=== PATIENT | female | born 1990 | race Caucasian/White ===

== ENCOUNTER 2019-06-29 11:49 | Emergency (ER) | payer MEDICAID, SELFPAY ==
[2019-06-29] VITALS (8 sets, daily range): BP systolic 131–164; BP diastolic 78–98; PULSE 88–110; RESP 16–20; TEMP 36.6; O2SAT 94–98; BMI 48.2
--- NOTE | 2019-06-29 12:20 | CT_ITS ---
WS: [id number] CT ABDOMEN AND PELVIS WITH CONTRAST HISTORY: hx of recent diverticulitis TECHNIQUE: Imaging performed of the abdomen and pelvis with IV contrast. Single phase imaging of the abdomen. Coronal and sagittal reformats are submitted. All CT scans at [facility] use at least one of these dose optimization techniques: automated exposure control; mA and/or kV adjustment per patient size (includes targeted exams where dose is matched to clinical indication); or iterativ e reconstruction. IV CONTRAST: Omnipaque 300; 95 mL IV. Oral contrast: No DLP: 1998.98 mGy.cm COMPARISON: 10/17/2018 Lower thorax: Lung bases are clear. Heart is normal size. Small hiatal hernia. Liver/biliary system: Mild hepatomegaly and moderate hepatic steatosis. No mass or intrahepatic dilat ation. Gallbladder: Normal. No gallstones or wall thickening. No pericholecystic fluid. Pancreas: Normal. Spleen: Normal. Adrenal glands: Normal. Right kidney: Normal. Left kidney: Mild perinephric stranding but there is no obstruction. There is edema and stranding yudy und the LEFT ureter extending into the pelvis. Aorta: Normal. Lymphadenopathy: Small retroperitoneal lymph nodes are probably reactive. Free fluid: There is a small amount of free fluid in the pelvis. Small amount of presacral fluid is a moderate amount of fat stranding in the pelvis, greatest around the descending and sigmoid colon. Th ere is edema extending along the paracolic gutters and perirenal fascia. There are small foci of free air within soft tissue stranding cannot definitely be placed within the lumen of the GI tract. GI tract: There is extensive acute inflammation surrounding the sigmoid colon. There are numerous div erticula in the descending colon. No obstruction. There is sigmoid wall thickening. There are numerou s abscesses in the pelvis associated with the sigmoid. There is a large abscess cavity posterior to t he proximal sigmoid measuring 9.6 x 3.8 cm. Tiny foci of free air adjacent to this collection. There is additional collection extending inferiorly into the LEFT of the uterus containing air. This collec tion measures 5.2 x 7.3 cm. There is additional fluid collection with enhancing wall in the RIGHT adn exa measuring 6.0 x 2.8 cm. Abdominal wall: Mild postsurgical changes on the intra-abdominal wall. Pelvis: Presacral soft tissue thickening and edema. Urinary bladder is not well distended. Uterus is anteverted and contains an IUD. There are multiple abscess cavities closely associated with the fundu s of the uterus and the LEFT lateral aspect of the uterus. The IUD appears appropriately positioned. Please correlate with timing and placement of the IUD as perforation leading to the multiple abscesse s should be considered as a possible etiology. Bones: Unremarkable. Notified RASHEEDA Barney at 06/29/2019 2:[address]/CT abdomen pelvis w con* [id number] IMPRESSION: 1. Multiple abscess cavities in the pelvis with foci of free air which are not contained within the lumen of the GI tract. These are most likely diverticular abscesses as there is extensive sigmoid diverticulitis with wall thickening an d inflammatory disease. These are not accessible for percutaneous drainage. 2. Small amount of free fluid in the pelvis. 3. There is an IUD present within the uterus and several of these abscess cavi ties about the uterus. Please correlate with timing of the IUD placement to be sure this is not related to uterine perforation. 4. LEFT periureteral and perinephric stranding. Suspect retrograde involvement of the infection to involve the kidney and the ureter. 5. Thickening and mild inflammation along the perirenal fascia and into the pe ritoneal cavity. Early changes of peritonitis are likely. 6. Hepatomegaly and hepatic steatosis.
--- NOTE | 2019-06-29 12:22 | ED_ITS ---
Documented by User: RASHEEDA Barney 06/29/19 16:47 HPI - Abdominal Pain General: Chief Complaint: Abdominal Pain Stated Complaint: ABD PAIN, DIVERTICULITIS Time Seen by Provider: 06/29/19 12:14 History of Present Illness: HPI narrative: Patient arrived via ambulance with complaint abdominal pain history of diverticulitis. Patient states that she has been and takes [facility] twice over the last couple months just most r ecently 4 days ago where she was treated for diverticulitis. Says she came here because she went see if we may we can do a different treatment for her because it came back now and she complains about pain in her left lower quadrant. She also says she was treated for urinary tract infection. MD elicited complaint: abdominal pain Pertinent past history: diverticulitis Onset (ago): hour(s) Pain Consistency: colicky Location: LLQ Severity: similar to previous episodes Quality: cramping and stabbing Radiation: none Exacerbating factors: nothing Relieving factors: nothing Associated Symptoms: Denies chills, fever(s), nausea and vomiting Review of Systems Const: Denies: fever, chills or body aches Eyes: Denies: change in vision or blurry vision ENMT: Denies: throat pain or nasal congestion Card: Denies: chest pain or shortness of breath on exertion Resp: Denies: shortness of breath, productive cough or non-productive cough GI: Reports: abdominal pain; Denies: nausea or vomiting Musc: Denies: extremity pain Skin/Breast: Denies: rash Neuro: Denies: headache Psych: Denies: anxiety or depression Renato/Lymph: Denies: easy bruising [facility] ED PFSH: Medical History (Updated 06/29/19 @ 19:58 by Mindi Gee MD, [facility] Chronic post-traumatic stress disorder Schizoaffective disorder, bipolar type Social History (Updated 03/08/19 @ 15:05 by Kasandra Esteves LPN) Smoking and tobacco status: former smoker Physical Exam Const: COMMON NORMALS: no apparent distress, average body habitus and oriented x3 HENMT: COMMON NORMALS: normocephalic HEAD & SCALP: normal to inspection and normocephalic FACE & SINUS: normal facial exam Eye: COMMON NORMALS: conjunctivae normal GENERAL EYE: normal appearance of both eyes CONJUNCTIVA: Yes conjunctivae normal Neck/C-Spine: COMMON NORMALS: no JVD Chest: COMMONS NORMALS: inspection of chest normal Resp: COMMON NORMALS: normal respiratory effort and clear to auscultation bilaterally AUSCULTATION: clear to auscultation bilaterally Cardio: COMMON NORMALS: no JVD, regular rate and regular rhythm RATE: regular rate RHYTHM: regular rhythm GI: COMMON NORMALS: normal to inspection, nondistended, normoactive bowel sounds PALPATION: Yes tender (Generalized) Extremity: COMMON NORMALS: normal to inspection and full ROM Neuro: COMMON NORMALS: oriented x3 Course Vital Signs: Vital signs: Vital Signs Temperature 97.8 F 06/29/19 11:50 Pulse Rate 88 06/29/19 19:25 Respiratory Rate 16 06/29/19 19:25 Blood Pressure 134/82 06/29/19 19:25 Pulse Oximetry 95 06/29/19 19:25 MDM - Abdominal Pain MDM Narrative: Medical decision making narrative: Discussed case with Dr. Gee and Dr. Patel. Patient is going to need either transferred admission. Spoke with Dr. Gresham per the radiologist on the line about her CT results. Dr. Patel called and discussed pt case again. Dr. Gee spoke with the [facility] ER patient is being transferred to the ER care of Dr. Carlisle and surgeon will be Dr. Jones will meet her in the ER Lab Data: Labs: Lab Results 06/29/19 06/29/19 06/29/19 Range/Units 12:23 12:23 12:23 WBC 20.2 H (4.0-10.0) 10^3/ uL RBC 4.87 (4.1-5.3) 10^6/u L Hgb 14.2 (11.5-15.3) g/dL Hct 44.7 (37.0-47.0) % MCV 91.8 (81-99) fL MCH 29.2 (28.0-34.0) pg MCHC 31.8 (30.0-36.0) g/dL RDW 14.9 (12.1-15.1) % Plt Count 229 (130-400) 10^3/c mm MPV 11.3 H (7.4-10.4) fL Neut % (Auto) 85.4 % Lymph % (Auto) 6.8 % Edmunds % (Auto) 6.2 % Eos % (Auto) 0.0 % Baso % (Auto) 0.3 % Neut # (Auto) 17.2 H (1.8-7.7) 10^3/u L Lymph # (Auto) 1.4 (0.8-4.8) 10^3/u L Edmunds # (Auto) 1.3 H (0.2-0.9) 10^3/u L Eos # (Auto) 0.0 (0.0-0.8) 10^3/u L Baso # (Auto) 0.1 (0.0-0.1) 10^3/u L Nucleated RBC % (a uto) 0 % Nucleated RBCs # 0.0 /100WBC Sodium 132 L (136-145) mmol/L Potassium 3.7 (3.5-5.1) mmol/L Chloride 92 L (98-107) mmol/L Carbon Dioxide 26 (22-29) mmol/L Anion Gap 17.7 (5-19) BUN 9 (6-20) mg/dL Creatinine 0.6 (0.5-0.9) mg/dL GFR Calculation 117.4 (90-130) mL/min Glucose 373 H (65-115) mg/dL Calculated Osmolal ity 285 (285-295) mOsm/k g Lactic Acid (0.5-2.2) mmol/L Calcium 8.6 (8.5-10.5) mg/dL Total Bilirubin 0.4 (0.15-1.2) mg/dL AST 8 (0-32) U/L ALT 8 (0-33) U/L Alkaline Phosphata se 95 (35-105) IU/L Total Protein 7.5 (6.6-8.7) g/dL Albumin 2.7 L (3.5-5.2) g/dL Globulin 4.8 H (1.3-4.6) g/dL Lipase (13-60) U/L HCG, Qual Negative (Negative) Urine Color (Yellow) Urine Appearance (CLEAR) Urine pH (5-7) Ur Specific Gravit y (1.005-1.030) Urine Protein (Negative) Urine Glucose (UA) (Normal) Urine Ketones (Negative) Urine Blood (Negative) Urine Nitrate (Negative) Urine Bilirubin (NEGATIVE) Urine Urobilinogen (Negative) mg/dL Ur Leukocyte Yue ase (Negative) Urine RBC (0-2) /hpf Urine WBC (0-5) /hpf Ur Squamous Epith Cells (0-5) Urine Bacteria (NONE) 06/29/19 06/29/19 06/29/19 Range/Units 12:23 12:33 16:26 WBC (4.0-10.0) 10^3/ uL RBC (4.1-5.3) 10^6/u L Hgb (11.5-15.3) g/dL Hct (37.0-47.0) % MCV (81-99) fL MCH (28.0-34.0) pg MCHC (30.0-36.0) g/dL RDW (12.1-15.1) % Plt Count (130-400) 10^3/c mm MPV (7.4-10.4) fL Neut % (Auto) % Lymph % (Auto) % Edmunds % (Auto) % Eos % (Auto) % Baso % (Auto) % Neut # (Auto) (1.8-7.7) 10^3/u L Lymph # (Auto) (0.8-4.8) 10^3/u L Edmunds # (Auto) (0.2-0.9) 10^3/u L Eos # (Auto) (0.0-0.8) 10^3/u L Baso # (Auto) (0.0-0.1) 10^3/u L Nucleated RBC % (a uto) % Nucleated RBCs # /100WBC Sodium (136-145) mmol/L Potassium (3.5-5.1) mmol/L Chloride (98-107) mmol/L Carbon Dioxide (22-29) mmol/L Anion Gap (5-19) BUN (6-20) mg/dL Creatinine (0.5-0.9) mg/dL GFR Calculation (90-130) mL/min Glucose (65-115) mg/dL Calculated Osmolal ity (285-295) mOsm/k g Lactic Acid 1.6 (0.5-2.2) mmol/L Calcium (8.5-10.5) mg/dL Total Bilirubin (0.15-1.2) mg/dL AST (0-32) U/L ALT (0-33) U/L Alkaline Phosphata se (35-105) IU/L Total Protein (6.6-8.7) g/dL Albumin (3.5-5.2) g/dL Globulin (1.3-4.6) g/dL Lipase 11 L (13-60) U/L HCG, Qual (Negative) Urine Color Yellow (Yellow) Urine Appearance Hazy A (CLEAR) Urine pH 5 (5-7) Ur Specific Gravit y 1.020 (1.005-1.030) Urine Protein 2+ H (Negative) Urine Glucose (UA) 4+ H (Normal) Urine Ketones 1+ H (Negative) Urine Blood 3+ H (Negative) Urine Nitrate Negative (Negative) Urine Bilirubin Neg (NEGATIVE) Urine Urobilinogen Norm (Negative) mg/dL Ur Leukocyte Yue ase 1+ H (Negative) Urine RBC 15-25 H (0-2) /hpf Urine WBC 10-15 H (0-5) /hpf Ur Squamous Epith Cells 15-25 H (0-5) Urine Bacteria 1+ H (NONE) Discharge Plan Discharge Patient Disposition: Transfer to ED Clinical Impression: Diverticular disease of intestine with perforation and abscess, Peritonitis Condition: Stable Prescriptions: No Action ziprasidone HCl [Geodon] 60 mg capsule 60 mg PO BID Qty: 60 RF: 2 ziprasidone HCl [Geodon] 40 mg capsule 40 mg PO BID Qty: 60 RF: 2 Zyrtec 10 mg Tablet 10 mg PO DAILY PRN (Reason: Allergy Symptoms) RF: 0 prednisone 20 mg Tablet 20 mg PO BID RF: 0 Flagyl 500 mg Tablet 500 mg PO TID RF: 0 Cipro 500 mg Tablet 500 mg PO BID RF: 0 Lantus Solostar U-100 Insulin 100 unit/mL (3 mL) Insulin Pen 35 unit SUBCUT DAILY RF: 0 Gen Lax 1 tab PO PRN RF: 0 amitriptyline 75 mg tablet See Rx Instructions .ROUTE .COMPLEX RF: 0 propranolol 40 mg tablet See Rx Instructions .ROUTE .COMPLEX RF: 0 ramelteon 8 mg tablet 8 mg PO BEDTIME RF: 0 tizanidine 4 mg Tablet 4 mg PO TID PRN (Reason: UNKNOWN) RF: 0 Lyrica 225 mg Capsule 225 mg PO BID RF: 0 Referrals: Domiano,Penny L, [employer] [Primary Care Provider] - Interventions: ED Discharge Assessment Last Done: 06/29/19 19:25 ED Charges Last Done: 06/29/19 19:27 Discharge Date/Time: 06/29/19 19:27 Sign Out Sign Out Data: Patient Sign Out occurred on 06/29/19 at 17:59. Patient's care was discussed, and care was transferred from to Mindi Gee MD, [facility] Coding Level of Care Code ED Infrastructure Architect for Chg Fwd Exam Comprehensive Documented by User: Mindi Gee MD, ROBERT 06/29/19 19:58 HPI - Abdominal Pain General: Chief Complaint: Abdominal Pain Stated Complaint: ABD PAIN, DIVERTICULITIS Time Seen by Provider: 06/29/19 12:14 [facility] ED PFSH: Medical History (Updated 06/29/19 @ 19:58 by Mindi Gee MD, [facility] Chronic post-traumatic stress disorder Schizoaffective disorder, bipolar type Social History (Updated 03/08/19 @ 15:05 by Kasandra Esteves LPN) Smoking and tobacco status: former smoker Course Vital Signs: Vital signs: Vital Signs Temperature 97.8 F 06/29/19 11:50 Pulse Rate 88 06/29/19 19:25 Respiratory Rate 16 06/29/19 19:25 Blood Pressure 134/82 06/29/19 19:25 Pulse Oximetry 95 06/29/19 19:25 MDM - Abdominal Pain MDM Narrative: Medical decision making narrative: 28-year-old female patient who presented to the emergency department with abdominal pain of a few days duration. Kindly refer to the nurse practitioners note for history and physical examination documentation. Patient has significant lower abdominal tenderness with rebound tenderness mainly on the left lower quadrant. Evaluation shows that she has acute diverticulitis with intra-abdominal abscess and free air. She also has perinephric stranding and stranding around the left ureter. She also has some abscess around her IUD. The surgeon in this facility believes that the patient needs a CT-guided drainage of her abscesses at this point there free air in her abdomen. For this reason she is transferred to [facility] for evaluation by the surgeon. He wanted her transferred to the emergency department and he will evaluate her there. His surgeon is Dr. Bucio and the accepting ER physician is Dr. Carlisle. Lab Data: Labs: Lab Results 06/29/19 06/29/19 06/29/19 Range/Units 12:23 12:23 12:23 WBC 20.2 H (4.0-10.0) 10^3/ uL RBC 4.87 (4.1-5.3) 10^6/u L Hgb 14.2 (11.5-15.3) g/dL Hct 44.7 (37.0-47.0) % MCV 91.8 (81-99) fL MCH 29.2 (28.0-34.0) pg MCHC 31.8 (30.0-36.0) g/dL RDW 14.9 (12.1-15.1) % Plt Count 229 (130-400) 10^3/c mm MPV 11.3 H (7.4-10.4) fL Neut % (Auto) 85.4 % Lymph % (Auto) 6.8 % Edmunds % (Auto) 6.2 % Eos % (Auto) 0.0 % Baso % (Auto) 0.3 % Neut # (Auto) 17.2 H (1.8-7.7) 10^3/u L Lymph # (Auto) 1.4 (0.8-4.8) 10^3/u L Edmunds # (Auto) 1.3 H (0.2-0.9) 10^3/u L Eos # (Auto) 0.0 (0.0-0.8) 10^3/u L Baso # (Auto) 0.1 (0.0-0.1) 10^3/u L Nucleated RBC % (a uto) 0 % Nucleated RBCs # 0.0 /100WBC Sodium 132 L (136-145) mmol/L Potassium 3.7 (3.5-5.1) mmol/L Chloride 92 L (98-107) mmol/L Carbon Dioxide 26 (22-29) mmol/L Anion Gap 17.7 (5-19) BUN 9 (6-20) mg/dL Creatinine 0.6 (0.5-0.9) mg/dL GFR Calculation 117.4 (90-130) mL/min Glucose 373 H (65-115) mg/dL Calculated Osmolal ity 285 (285-295) mOsm/k g Lactic Acid (0.5-2.2) mmol/L Calcium 8.6 (8.5-10.5) mg/dL Total Bilirubin 0.4 (0.15-1.2) mg/dL AST 8 (0-32) U/L ALT 8 (0-33) U/L Alkaline Phosphata se 95 (35-105) IU/L Total Protein 7.5 (6.6-8.7) g/dL Albumin 2.7 L (3.5-5.2) g/dL Globulin 4.8 H (1.3-4.6) g/dL Lipase (13-60) U/L HCG, Qual Negative (Negative) Urine Color (Yellow) Urine Appearance (CLEAR) Urine pH (5-7) Ur Specific Gravit y (1.005-1.030) Urine Protein (Negative) Urine Glucose (UA) (Normal) Urine Ketones (Negative) Urine Blood (Negative) Urine Nitrate (Negative) Urine Bilirubin (NEGATIVE) Urine Urobilinogen (Negative) mg/dL Ur Leukocyte Yue ase (Negative) Urine RBC (0-2) /hpf Urine WBC (0-5) /hpf Ur Squamous Epith Cells (0-5) Urine Bacteria (NONE) 06/29/19 06/29/19 06/29/19 Range/Units 12:23 12:33 16:26 WBC (4.0-10.0) 10^3/ uL RBC (4.1-5.3) 10^6/u L Hgb (11.5-15.3) g/dL Hct (37.0-47.0) % MCV (81-99) fL MCH (28.0-34.0) pg MCHC (30.0-36.0) g/dL RDW (12.1-15.1) % Plt Count (130-400) 10^3/c mm MPV (7.4-10.4) fL Neut % (Auto) % Lymph % (Auto) % Edmunds % (Auto) % Eos % (Auto) % Baso % (Auto) % Neut # (Auto) (1.8-7.7) 10^3/u L Lymph # (Auto) (0.8-4.8) 10^3/u L Edmunds # (Auto) (0.2-0.9) 10^3/u L Eos # (Auto) (0.0-0.8) 10^3/u L Baso # (Auto) (0.0-0.1) 10^3/u L Nucleated RBC % (a uto) % Nucleated RBCs # /100WBC Sodium (136-145) mmol/L Potassium (3.5-5.1) mmol/L Chloride (98-107) mmol/L Carbon Dioxide (22-29) mmol/L Anion Gap (5-19) BUN (6-20) mg/dL Creatinine (0.5-0.9) mg/dL GFR Calculation (90-130) mL/min Glucose (65-115) mg/dL Calculated Osmolal ity (285-295) mOsm/k g Lactic Acid 1.6 (0.5-2.2) mmol/L Calcium (8.5-10.5) mg/dL Total Bilirubin (0.15-1.2) mg/dL AST (0-32) U/L ALT (0-33) U/L Alkaline Phosphata se (35-105) IU/L Total Protein (6.6-8.7) g/dL Albumin (3.5-5.2) g/dL Globulin (1.3-4.6) g/dL Lipase 11 L (13-60) U/L HCG, Qual (Negative) Urine Color Yellow (Yellow) Urine Appearance Hazy A (CLEAR) Urine pH 5 (5-7) Ur Specific Gravit y 1.020 (1.005-1.030) Urine Protein 2+ H (Negative) Urine Glucose (UA) 4+ H (Normal) Urine Ketones 1+ H (Negative) Urine Blood 3+ H (Negative) Urine Nitrate Negative (Negative) Urine Bilirubin Neg (NEGATIVE) Urine Urobilinogen Norm (Negative) mg/dL Ur Leukocyte Yue ase 1+ H (Negative) Urine RBC 15-25 H (0-2) /hpf Urine WBC 10-15 H (0-5) /hpf Ur Squamous Epith Cells 15-25 H (0-5) Urine Bacteria 1+ H (NONE) Discharge Plan Discharge Patient Disposition: Transfer to ED Clinical Impression: Diverticular disease of intestine with perforation and abscess, Peritonitis Condition: Stable Prescriptions: No Action ziprasidone HCl [Geodon] 60 mg capsule 60 mg PO BID Qty: 60 RF: 2 ziprasidone HCl [Geodon] 40 mg capsule 40 mg PO BID Qty: 60 RF: 2 Zyrtec 10 mg Tablet 10 mg PO DAILY PRN (Reason: Allergy Symptoms) RF: 0 prednisone 20 mg Tablet 20 mg PO BID RF: 0 Flagyl 500 mg Tablet 500 mg PO TID RF: 0 Cipro 500 mg Tablet 500 mg PO BID RF: 0 Lantus Solostar U-100 Insulin 100 unit/mL (3 mL) Insulin Pen 35 unit SUBCUT DAILY RF: 0 Gen Lax 1 tab PO PRN RF: 0 amitriptyline 75 mg tablet See Rx Instructions .ROUTE .COMPLEX RF: 0 propranolol 40 mg tablet See Rx Instructions .ROUTE .COMPLEX RF: 0 ramelteon 8 mg tablet 8 mg PO BEDTIME RF: 0 tizanidine 4 mg Tablet 4 mg PO TID PRN (Reason: UNKNOWN) RF: 0 Lyrica 225 mg Capsule 225 mg PO BID RF: 0 Referrals: Penny Sullivan, [employer] [Primary Care Provider] - Interventions: ED Discharge Assessment Last Done: 06/29/19 19:25 ED Charges Last Done: 06/29/19 19:27 Discharge Date/Time: 06/29/19 19:27 Sign Out Sign Out Data: Patient Sign Out occurred on 06/29/19 at 17:59. Patient's care was discussed, and care was transferred from to Mindi Gee MD, [facility]. Coding Level of Care Code ED Infrastructure Architect for Stevie Fwd Exam Comprehensive
[2019-06-29] MEDS: sodium chloride 0.9% 1,000 ML 999 ML IV (12:39)
[2019-06-29] MEDS: metoclopramide 5 mg/mL SDV 2 mL 10 MG IVP (12:40)
[2019-06-29 12:49] LABS: Basophils # 0.1 10^3/uL (0.0-0.1); Basophils % 0.3 %; Hematocrit 44.7 % (37.0-47.0); Hemoglobin 14.2 g/dL (11.5-15.3); Lymphocytes # 1.4 10^3/uL (0.8-4.8); Lymphocytes % 6.8 %; Mean Corpuscular HGB Conc 31.8 g/dL (30.0-36.0); Mean Corpuscular Hemoglobin 29.2 pg (28.0-34.0); Mean Corpuscular Volume 91.8 fL (81-99); Mean Platelet Volume 11.3 fL (7.4-10.4); Monocytes # 1.3 10^3/uL (0.2-0.9); Monocytes % 6.2 %; Neutrophils # 17.2 10^3/uL (1.8-7.7); Neutrophils % 85.4 %; Nucleated Red Blood Cells % 0 %; Platelet Count 229 10^3/cmm (130-400); Red Blood Count 4.87 10^6/uL (4.1-5.3); Red Cell Distribution Width 14.9 % (12.1-15.1); White Blood Count 20.2 10^3/uL (4.0-10.0)
[2019-06-29 12:59] LABS: HCG, Serum Qual Negative (Negative)
[2019-06-29 13:11] LABS: Alanine Aminotransferase 8 U/L (0-33); Albumin Level 2.7 g/dL (3.5-5.2); Alkaline Phosphatase 95 IU/L (35-105); Anion Gap 17.7 (5-19); Aspartate Amino Transferase 8 U/L (0-32); Blood Urea Nitrogen 9 mg/dL (6-20); Calcium 8.6 mg/dL (8.5-10.5); Carbon Dioxide 26 mmol/L (22-29); Chloride 92 mmol/L (98-107); Creatinine Clr Calc Pharmacy 187.9021; Globulin 4.8 g/dL (1.3-4.6); Glomerular Filtration Rate 117.4 mL/min (90-130); Glucose 373 mg/dL (65-115); Osmolality Calculated 285 mOsm/kg (285-295); Potassium 3.7 mmol/L (3.5-5.1); Sodium 132 mmol/L (136-145); Total Bilirubin 0.4 mg/dL (0.15-1.2); Total Protein 7.5 g/dL (6.6-8.7)
[2019-06-29 13:13] LABS: Glucose Urine UA 4+ (Normal); Ketones Urine 1+ (Negative); Protein Urine 2+ (Negative); Urine Appearance Hazy (CLEAR); Urine Color Yellow (Yellow); pH Urine 5 (5-7)
[2019-06-29 13:14] LABS: Add Urine Culture? Yes; Add Urine Microscopic? YES; Bacteria Urine 1+; Bilirubin Urine Neg (NEGATIVE); Blood Urine 3+ (Negative); Leukocyte Esterase Urine 1+ (Negative); Nitrate Urine Negative (Negative); RBC Urine 15-25 /hpf (0-2); Squamous Epithelial Cell Urine 15-25 (0-5); Urobilinogen Urine Norm (Negative)
[2019-06-29] MEDS: morphine 4 mg/mL SDV 1 mL IVP (13:24)
[2019-06-29] MEDS: iohexol 300 mg/mL 100 mL Btl IV (13:37)
--- NOTE | 2019-06-29 15:15 | ECG_ITS ---
Measurements Intervals [place] Rate: 106 P: 72 [place]: 160 QRS: 89 QRSD: 90 T: 62 QT: 330 QTc: 440 SINUS TACHYCARDIA POSSIBLE LEFT ATRIAL ENLARGEMENT [-0.1mV P WAVE IN V1/V2] LOW QRS VOLTAGE IN PRECORDIAL LEADS [QRS DEFLECTION < 1.0 mV IN CHEST LEADS] MODERATE T-WAVE ABNORMALITY, CONSIDER LATERAL ISCHEMIA [-0.1+ mV T WAVE IN I/ I/aVL/V5/V6] No previous ECG available for comparison Electronically Signed On 06-29-2019 17:18:37 CDT by John Hill M.D. [email or web address]
--- NOTE | 2019-06-29 15:15 | XR_ITS ---
WS: [id number] XR chest 1V portable [id number] REASON FOR EXAM: diverticuli abcesses FINDINGS: The heart mediastinum were normal. Peripheral lung barba are adequately aerated. No pneumonia, pleural effusion, pulmonary edema, or ma ss effect. The hilum and apices are normal. XR/XR chest 1V portable [id number] IMPRESSION: Negative chest for active pathology.
[2019-06-29] MEDS: sodium chloride 0.9% 1,000 ML 125 ML IV (15:44)
[2019-06-29] MEDS: morphine 4 mg/mL SDV 1 mL 2 MG IVP (15:45)
[2019-06-29] MEDS: morphine 4 mg/mL SDV 1 mL 10 MG IVP ×2 (16:37→18:40)
[2019-06-29 16:56] LABS: Lactic Sepsis W/Reflex 1.6 mmol/L (0.5-2.2)
[2019-06-29] MEDS: ciprofloxacin 400 MG/200 ML PREMIX 200 MG IV (16:59)
[2019-06-29] MEDS: metroNIDAZOLE IV 500 MG/100 ML PREMIX 100 MG IV (17:58)
[2019-06-29 18:55] LABS: Lipase 11 U/L (13-60)
--- NOTE | 2019-06-29 19:08 | PC.NURSE ---
REPORT RECEIVED FROM [facility] AND CARE TRANSFERRED TO [facility]
--- NOTE | 2019-06-29 19:23 | PC.NURSE ---
Ems here for transfer of patient to [facility]. Iv SL and care turned over to EMS. Patient left in stable condition via stretcher.
== END 2019-06-29 19:27 ==
PROVIDERS: Nurse Practitioner Family; Emergency Provider Family Medicine; Family Provider Nurse Practitioner Primary Care; PCP Nurse Practitioner Primary Care
DX: K57.20 Diverticulitis of large intestine with perforation and abscess without bleeding (principal); Z79.4 Long term (current) use of insulin; Z87.891 Personal history of nicotine dependence
CPT/HCPCS: 12345; 71045; 74177; 80053; 81001; 83605; 83690; 84703; 85025; 87040; 87086; 93005; 96361; 96365; 96375; 96376; 99283; 99285; J0744; J2270; J2765; J7030; Q9967; S0030

== ENCOUNTER → 2019-08-05 14:00 | Outpatient (BNVA) | payer MEDICAID, SELFPAY | PROVIDERS: Family Provider Nurse Practitioner Primary Care; PCP Nurse Practitioner Primary Care; Visit Provider Obstetrics & Gynecology | DX: Z30.431 Encounter for routine checking of intrauterine contraceptive device (principal) | CPT/HCPCS: 76830 ==

== ENCOUNTER → 2019-10-07 10:58 | Outpatient (BNVA) | payer MEDICAID, SELFPAY | PROVIDERS: Family Provider Nurse Practitioner Primary Care; PCP Nurse Practitioner Primary Care; Visit Provider Emergency Medicine | DX: K57.41 Diverticulitis of both small and large intestine with perforation and abscess with bleeding; R10.9 Unspecified abdominal pain; R11.2 Nausea with vomiting, unspecified | CPT/HCPCS: 80053; 83605; 85025 ==

== ENCOUNTER → 2020-01-06 12:35 | Outpatient (BNVA) | payer MEDICAID, SELFPAY | PROVIDERS: Family Provider Nurse Practitioner Primary Care; PCP Nurse Practitioner Primary Care; Visit Provider Registered Nurse | DX: Z79.899 Other long term (current) drug therapy (principal) | CPT/HCPCS: 80307 ==

== ENCOUNTER → 2020-02-07 15:29 | Outpatient (BNVA) | payer MEDICAID, SELFPAY | PROVIDERS: Family Provider Nurse Practitioner Primary Care; PCP Nurse Practitioner Primary Care; Visit Provider Obstetrics & Gynecology | DX: R87.610 Atypical squamous cells of undetermined significance on cytologic smear of cervix (ASC-US) (principal) | CPT/HCPCS: 88175 ==

== ENCOUNTER → 2020-03-08 15:28 | Outpatient (BNVA) | payer MEDICAID, SELFPAY | PROVIDERS: Family Provider Nurse Practitioner Primary Care; PCP Nurse Practitioner Primary Care; Visit Provider Obstetrics & Gynecology | DX: R87.610 Atypical squamous cells of undetermined significance on cytologic smear of cervix (ASC-US) (principal) | CPT/HCPCS: 88305 ==

== ENCOUNTER → 2020-04-26 11:01 | Outpatient (BNVA) | payer MEDICAID, SELFPAY | PROVIDERS: Family Provider Nurse Practitioner Primary Care; PCP Nurse Practitioner Primary Care; Visit Provider Obstetrics & Gynecology | DX: N87.1 Moderate cervical dysplasia (principal) | CPT/HCPCS: 87635 ==

== ENCOUNTER 2020-05-02 09:00 | Day surgery (SDC) | payer MEDICAID, SELFPAY ==
[2020-04-28 12:06] VITALS: BMI 47.4
--- NOTE | 2020-04-28 12:34 | ANES.PREANE2 ---
Pre-Anesthetic Assessment Pre-Anesthetic Assessment: Height/Weight: Height 1.65 m Weight 129.274 kg Preop Diagnosis: cervical intraepithelial neoplasia 2 Proposed Procedure: Operation Date: 05/02/20 08:20 Proposed Procedures p Colposcopy with loop electrosurgical excision procedure 82346 N87.1(Not Applicable) - Jayy Tai MD Familial anesthetic complications: Takes a lot to be knocked out, woke up tonsil surgery (remembers the ceiling) Social: Social History: No alcohol and No tobacco Comment: former smoker Exam: Pre-Anes Outpt Exam: alert, oriented x 3, clear to auscultation bilaterally and regular rate & rhythm Airway: Cervical ROM: WNL MP: 2 Dentition: Other (no teeth) Pulmonary: Pulmonary: Sleep apnea CV/HEM: CV/HEM: DVT and HTN GI: GI: GERD Metabolic: Metabolic: DM and Morbid obesity Musc/skel: Musc/skel: Fibromyalgia Neuropsych: Neuropsych: Seizure (petit mal every day, grand mal last one over 1 month ago) Comments: Chronic daily petit mal seizures, seconds to minutes, stares off into space and cant' respond Anesthetic Plan: ASA status: 3 Anesthesia: General Risk of > 500 ml blood loss (7ml/kg in children): No PFSH Anesthesia PFSH: Medical History (Updated 03/10/20 @ 18:13 by Jayy Tai MD) ADHD Chronic post-traumatic stress disorder Diverticulitis of both large and small intestine with abscess with bleeding DVT (deep venous thrombosis) Fibromyalgia GERD (gastroesophageal reflux disease) Hypertension IBS (irritable bowel syndrome) Insomnia Schizoaffective disorder, bipolar type Seizures Sleep apnea Type 2 diabetes mellitus with diabetic polyneuropathy Surgical History (Updated 02/08/20 @ 17:06 by Jayy Tai MD) History of dental surgery S/P colon resection (~2019) Due to diverticulitis. S/P exploratory laparotomy (~2019) scar tissue following colon resection S/P tonsillectomy and adenoidectomy (~2008) Family History Mother Hypertension Ovarian cancer Hypercholesteremia Father Hypertension Grandmother Hypertension Maternal and Paternal Diabetes Paternal Cervical cancer Maternal Grandfather Hypertension Maternal and Paternal Diabetes Maternal Stroke Maternal and Paternal Family/Other Hypercholesteremia Maternal side in general Uterine cancer Maternal Aunt Social History (Updated 03/10/20 @ 18:09 by Jayy Tai MD) Smoking and tobacco status: former smoker Quit status (tobacco): has quit using tobacco Year quit tobacco: 2018 Former quit date comment: Was 2-4 PPD. Started age 9. Alcohol intake: current Alcohol intake frequency: holidays/special occasions only History of recent travel: No Female Reproductive History: Spontaneous abortions: No Data Anesthesia Cardiac Studies: No Data to Display
[2020-04-28 12:51] LABS: INR 1.03 (0.8-1.2)
[2020-04-28 12:59] LABS: Anion Gap 12.5 (5-19); Blood Urea Nitrogen 14 mg/dL (6-20); Carbon Dioxide 24 mmol/L (22-29); Chloride 98 mmol/L (98-107); Glomerular Filtration Rate 97.6 mL/min (90-130); Glucose 362 mg/dL (65-115); Osmolality Calculated 285 mOsm/kg (285-295); Potassium 4.5 mmol/L (3.5-5.1); Sodium 130 mmol/L (136-145)
[2020-05-02 06:05] VITALS: BP 107/78; PULSE 71; RESP 16; TEMP 36.2; O2SAT 97
[2020-05-02 06:06] LABS: OR HCG Qualitative Urine Negative (Negative)
[2020-05-02] MEDS: sodium chloride 0.9% 1,000 ML 30 ML IV (06:17)
[2020-05-02 06:29] LABS: Glucose Point of Care 402 mg/dL (70-110)
--- NOTE | 2020-05-02 06:41 | ANES.PREANE2 ---
Pre-Anesthetic Assessment Pre-Anesthetic Assessment: Height/Weight: Height 1.65 m Weight 129.274 kg Temp Pulse Resp BP Pulse Ox 97.2 F L 71 16 107/78 97 05/02/20 06:05 05/02/20 06:05 05/02/20 06:05 05/02/20 06:05 05/02/20 06:05 Preop Diagnosis: cervical intraepithelial neoplasia 2 Proposed Procedure: Operation Date: 05/02/20 07:10 Proposed Procedures p Colposcopy with loop electrosurgical excision procedure 96234 N87.1(Not Applicable) - Jayy Tai MD Was Beta Jairon taken within 24 hours: Yes Last intake: Intake Last Liquid Date 05/01/20 Last Liquid Time 21:00 Last Solid Date 05/01/20 Last Solid Time 19:00 Social: Packs per day: Quit smoking Exam: Pre-Anes Outpt Exam: alert, oriented x 3, clear to auscultation bilaterally and regular rate & rhythm Airway: Submandibular: WNL Cervical ROM: WNL MP: 2 Dentition: False History/ROS: No significant complaints Pulmonary: Pulmonary: Sleep apnea CV/HEM: CV/HEM: HTN : : None reported Hepatic: Hepatic: None reported GI: Comments: IBS Metabolic: Metabolic: DM and Morbid obesity Musc/skel: Musc/skel: None reported Neuropsych: Neuropsych: Bipolar Anesthetic Plan: ASA status: 3 Anesthesia: General Meds/Allergies Current Medications: Current Medications Generic Name Dose Route Start Last Admin Trade Name Freq PRN Reason Stop Dose Admin Sodium Chloride 1,000 mls @ 30 ml s/hr 05/02/20 06:00 05/02/20 06:17 Sodium Chloride 0.9% IV 05/03/20 05:59 30 mls/hr .Q24H FRANCISCO Administration PFSH Anesthesia PFSH: Medical History ADHD Chronic post-traumatic stress disorder Diverticulitis of both large and small intestine with abscess with bleeding DVT (deep venous thrombosis) Fibromyalgia GERD (gastroesophageal reflux disease) Hypertension IBS (irritable bowel syndrome) Insomnia Schizoaffective disorder, bipolar type Seizures Sleep apnea Type 2 diabetes mellitus with diabetic polyneuropathy Surgical History History of dental surgery S/P colon resection (~2019) Due to diverticulitis. S/P exploratory laparotomy (~2019) scar tissue following colon resection S/P tonsillectomy and adenoidectomy (~2008) Family History Mother Hypertension Ovarian cancer Hypercholesteremia Father Hypertension Grandmother Hypertension Maternal and Paternal Diabetes Paternal Cervical cancer Maternal Grandfather Hypertension Maternal and Paternal Diabetes Maternal Stroke Maternal and Paternal Family/Other Hypercholesteremia Maternal side in general Uterine cancer Maternal Aunt Social History (Updated 05/01/20 @ 20:53 by Jayy Tai MD) Smoking and tobacco status: former smoker Quit status (tobacco): has quit using tobacco Year quit tobacco: 2017 Former quit date comment: Was 2-4 PPD. Started age 9. Alcohol intake: current Alcohol intake frequency: holidays/special occasions only History of recent travel: No Female Reproductive History: Spontaneous abortions: No Data Anesthesia CBC & Chem 7: 04/28/20 12:19 04/28/20 12:19 Other Labs: Laboratory Results - last 48 hr 05/02/20 05/02/20 05:57 06:18 POC Glucose 402 H Urine HCG, Qual Negative Cardiac Studies: No Data to Display
[2020-05-02] MEDS: insulin regular-human 100 units/1 mL 10 UNIT IVP (06:50)
--- NOTE | 2020-05-02 10:16 | ANE.PACU2 ---
Inpatient post-anesthesia follow up: Airway intact: Yes Vital signs: Temperature 97.2 F Pulse Rate 71 Respiratory Rate 16 Blood Pressure 107/78 Pulse Oximetry 97 Oxygen Delivery Me thod Room Air Oxygen Flow Rate Fraction of Inspir ed Oxygen Hydration adequate: Yes Nausea and vomiting: No Pain level: 2 Mental status: Baseline
== END 2020-05-02 12:00 | disposition home or self-care (01) ==
LOC: OR 05-05 15:50
PROVIDERS: Anesthesiology; PCP Nurse Practitioner Primary Care; Visit Provider Obstetrics & Gynecology
DX: Z53.9 Procedure and treatment not carried out, unspecified reason (principal)
CPT/HCPCS: 36415; 36416; 80048; 81025; 82962; 84703; 85610; 96375; J1815; J7030

== ENCOUNTER → 2020-06-07 10:02 | Outpatient (BNVA) | payer MEDICAID, SELFPAY | PROVIDERS: PCP Nurse Practitioner Primary Care; Referring Provider Obstetrics & Gynecology; Visit Provider Obstetrics & Gynecology | DX: N87.1 Moderate cervical dysplasia (principal) | CPT/HCPCS: 87635 ==

== ENCOUNTER 2020-06-13 05:36 | Day surgery (SDC) | payer MEDICAID, SELFPAY ==
[2020-06-09 12:17] VITALS: BMI 47.2
--- NOTE | 2020-06-09 12:38 | ANES.PREANE2 ---
Pre-Anesthetic Assessment Pre-Anesthetic Assessment: Height/Weight: Height 1.65 m Weight 128.82 kg Preop Diagnosis: cervical intraepithelial neoplasia 2 Proposed Procedure: Operation Date: 06/13/20 07:00 Proposed Procedures p Colposcopy w/ loop electrosurgical excision procedure 38391 N87.1(Not Applicable) - Jayy Tai MD Was Beta Jairon taken within 24 hours: Yes Was Clonidine taken within 24 hours: N/A Social: Social History: No alcohol and No tobacco Exam: Pre-Anes Outpt Exam: alert, oriented x 3, clear to auscultation bilaterally and regular rate & rhythm Airway: Submandibular: WNL Cervical ROM: WNL MP: 2 Dentition: False Pulmonary: Pulmonary: COPD Comments: h/o smoking CV/HEM: CV/HEM: HTN GI: GI: GERD Metabolic: Metabolic: DM and Morbid obesity Neuropsych: Neuropsych: Bipolar (Schizoaffective) Anesthetic Plan: ASA status: 3 Anesthesia: General Risk of > 500 ml blood loss (7ml/kg in children): No PFSH Anesthesia PFSH: Medical History ADHD Chronic post-traumatic stress disorder Diverticulitis of both large and small intestine with abscess with bleeding DVT (deep venous thrombosis) Fibromyalgia GERD (gastroesophageal reflux disease) Hypertension IBS (irritable bowel syndrome) Insomnia Schizoaffective disorder, bipolar type Seizures Sleep apnea Type 2 diabetes mellitus with diabetic polyneuropathy Surgical History History of dental surgery S/P colon resection (~2019) Due to diverticulitis. S/P exploratory laparotomy (~2019) scar tissue following colon resection S/P tonsillectomy and adenoidectomy (~2008) Family History Mother Hypertension Ovarian cancer Hypercholesteremia Father Hypertension Grandmother Hypertension Maternal and Paternal Diabetes Paternal Cervical cancer Maternal Grandfather Hypertension Maternal and Paternal Diabetes Maternal Stroke Maternal and Paternal Family/Other Hypercholesteremia Maternal side in general Uterine cancer Maternal Aunt Social History (Updated 06/09/20 @ 11:05 by Jayy Tai MD) Smoking and tobacco status: former smoker Quit status (tobacco): has quit using tobacco Year quit tobacco: 2017 Former quit date comment: Was 2-4 PPD. Started age 9. Alcohol intake: current Alcohol intake frequency: holidays/special occasions only Substance/Drug Use: never History of recent travel: No Female Reproductive History: Spontaneous abortions: No Data Anesthesia CBC & Chem 7: 06/09/20 12:31 Cardiac Studies: No Data to Display
[2020-06-09 12:54] LABS: Anion Gap 14.2 (5-19); Blood Urea Nitrogen 10 mg/dL (6-20); Calcium 8.6 mg/dL (8.5-10.5); Carbon Dioxide 26 mmol/L (22-29); Chloride 99 mmol/L (98-107); Glomerular Filtration Rate 116.6 mL/min (90-130); Glucose 151 mg/dL (65-115); Osmolality Calculated 282 mOsm/kg (285-295); Potassium 4.2 mmol/L (3.5-5.1); Sodium 135 mmol/L (136-145)
[2020-06-13] VITALS (7 sets, daily range): BP systolic 108–135; BP diastolic 58–82; PULSE 65–73; RESP 12–22; TEMP 36.2–37.1; O2SAT 93–97
--- NOTE | 2020-06-13 06:30 | P.ANESUD_ITS ---
Pre-Anesthetic Update Pre-Anesthetic Assessment: Date of Surgery/Procedure: 06/13/20 Preop Charmaine gnosis: cervical intraepithelial neoplasia 2 Proposed Procedure: Operation Date: 06/13/20 07:00 Proposed Procedures p Colposcopy w/ loop electrosurgical excision procedure 26096 N87.1(Not Applicable) - Jayy Tai MD Any changes to Pre-Anesthetic Assessment?: No Exam: Pre-Anes Outpt Exam: alert, oriented x 3, clear to auscultation bilaterally and regular rate & rhythm Cardiac Studies: No Data to Display
[2020-06-13 06:38] LABS: Glucose Point of Care 115 mg/dL (70-110)
[2020-06-13] MEDS: sodium chloride 0.9% 1,000 ML 30 ML IV (06:45)
--- NOTE | 2020-06-13 06:49 | P.HPUD_ITS ---
Surgery/Procedure H&P Update DATE OF PROCEDURE: June 13, 2020 DATE H&P PERFORMED: 06/09/20 H&P UPDATE INFORMATION: I have reviewed H&P completed within last 30 days, I have examined patient prior to procedure, No changes to prior documentation and H&P is in [facility] EMR on date indicated PREOP DIAGNOSIS: cervical intraepithelial neoplasia 2 PLANNED PROCEDURE: Operation Date: 06/13/20 07:00 Proposed Procedures p Colposcopy w/ loop electrosurgical excision procedure 39029 N87.1(Not Applicable) - Jayy Tai MD
[2020-06-13 06:50] LABS: OR HCG Qualitative Urine Negative (Negative)
--- NOTE | 2020-06-13 07:27 | PC.NURSE ---
lugols solution [facility]#[id number] exp 09/13 passed to field and used by Dr Zaire Stacy [facility]#[id number] exp 08/14 passed to field and used by Dr Tai
--- NOTE | 2020-06-13 07:40 | P.OP_ITS ---
Operative Report Date of procedure: June 13, 2020 Pre-op Diagnosis: cervical intraepithelial neoplasia 2 Post-op Diagnosis: Cervical intraepithelial neoplasia 2 Procedure Done: Colposcopy with loop electrosurgical excisional procedure Specimens removed/disposition: LEEP specimen Surgeon: Jayy Tai Non Destructive Evaluation Manager: Yung Anesthesia: MAC Estimated blood loss (mL): 5 Complications: None Findings: Minimal acetowhite changes at the 5-6 o'clock area. Brief History: Patient is a 29-year-old female, 1, para 0-0-1-0 who has a Rebekah IUD present. She had presented to the office for wellness visit on 02/07/2020 at which time a Pap smear was performed. Pap smear came back showing low-grade KYLE with positive high risk HPV. Colposcopy was performed on 04/28/2020. Biopsy came back showing HEVER-2. Recommendations were to proceed with treatment. Due to difficulty visualizing the cervix adequately due to the orientation of the cervix, decision was made to perform the LEEP in the OR. She is presenting for that today. Procedure: Patient was taken to the operating room where IV sedation was started. She was placed in a dorsal supine position with legs in Palmer style stirrups. Sequential compression boots have been placed prior to starting the case. Patient had voided prior to coming to the operating room. A nonconductive speculum was placed in the vagina and acetic acid applied to the cervix. Colposcopy was performed with small area of acetowhite changes noted at the 5 to 6 o'clock position. Lugol's was applied. Paracervical block was performed with a total of 10 mL of 2% lidocaine with epinephrine used. Using a 2 cm loop, the entire transformation zone and nonstaining portions of the cervix were excised in a single pass. The base of the excised area and outer edges of the cervix were cauterized with ball tip cautery. Monsel solution was applied. The patient tolerated the procedure well. Drains: None Post procedure status: Patient was transferred recovery room in satisfactory condition. Disposition: Discharge to home. Follow-up appointment scheduled in approximately 2 weeks. Discharge medications: She was given a prescription in the office for: Metronidazole 500 mg, 2 tablets twice a day for 2 doses She is to resume her usual home medications.
--- NOTE | 2020-06-13 17:13 | ANE.PACU2 ---
Inpatient post-anesthesia follow up: Airway intact: Yes Vital signs: Temperature 97.1 F Pulse Rate 65 Respiratory Rate 18 Blood Pressure 115/73 Pulse Oximetry 96 Oxygen Delivery Me thod Room Air Oxygen Flow Rate 8 Fraction of Inspir ed Oxygen Hydration adequate: Yes Nausea and vomiting: No Pain level: 2 Mental status: Baseline
== END 2020-06-13 08:26 | disposition home or self-care (01) ==
PROVIDERS: Anesthesiology; PCP Nurse Practitioner Primary Care; Visit Provider Obstetrics & Gynecology
PROC: 0UJH8ZZ Inspection of Vagina and Cul-de-sac, Via Natural or Artificial Opening Endoscopic (ICD-10-PCS; CPT 57461; principal; 2020-06-13 07:00)
DX: N87.1 Moderate cervical dysplasia (principal); J44.9 Chronic obstructive pulmonary disease, unspecified; I10 Essential (primary) hypertension; E66.01 Morbid (severe) obesity due to excess calories; Z68.42 Body mass index [BMI] 45.0-49.9, adult; Z86.718 Personal history of other venous thrombosis and embolism; M79.7 Fibromyalgia; K21.9 Gastro-esophageal reflux disease without esophagitis; G47.30 Sleep apnea, unspecified; E11.40 Type 2 diabetes mellitus with diabetic neuropathy, unspecified
CPT/HCPCS: 57461; 36416; 80048; 81025; 82962; 84703; 88307; J2250; J2405; J2704; J3010; J7030

== ENCOUNTER → 2020-06-28 15:51 | Outpatient (BNVA) | payer MEDICAID, SELFPAY | PROVIDERS: PCP Nurse Practitioner Primary Care; Visit Provider Registered Nurse | DX: F25.0 Schizoaffective disorder, bipolar type (principal) | CPT/HCPCS: 80053; 80061; 83036; 84443 ==

== ENCOUNTER → 2020-07-27 13:01 | Outpatient (BNVA) | payer MEDICAID, SELFPAY | PROVIDERS: PCP Nurse Practitioner Primary Care; Visit Provider Counselor Professional | DX: F43.12 Post-traumatic stress disorder, chronic (principal) | CPT/HCPCS: 90834 ==

== ENCOUNTER → 2020-09-04 12:56 | Outpatient (BNVA) | payer MEDICAID, SELFPAY | PROVIDERS: PCP Nurse Practitioner Primary Care; Visit Provider Counselor Professional | DX: F43.12 Post-traumatic stress disorder, chronic (principal) | CPT/HCPCS: 90834 ==

== ENCOUNTER 2020-11-22 09:11 | Emergency (ER) | payer MEDICAID, SELFPAY ==
--- NOTE | 2020-11-22 09:17 | W.ED.ABDPA2 ---
Documented by User: ANNA Serrano 11/22/20 11:53 HPI - Abdominal Pain General: Chief Complaint: Abdominal Pain Stated Complaint: Left side abdominal pain, nausea Time Seen by Provider: 11/22/20 09:13 Source: patient Mode of arrival: ambulatory Limitations: no limitations History of Present Illness: HPI narrative: Patient is a 30-year-old female who presents to ED today with a complaint of left lower abdominal pain that is been present over the past 2 weeks. She states over the past 72 hours pain has worsened. She began feeling nauseous last night and has had several episodes of non-bloody emesis today. She reports bowel movements have been fairly normal. No fevers but states she has been chilling. She reports 06/2019 she was diagnosed with diverticulitis with perforation/abscess. She was subsequently transferred to [facility] and underwent colon resection. States she has not had many issues following the surgery. MD elicited complaint: abdominal pain Pertinent past history: other (diverticulitis/colon resection ) Onset (ago): day(s) Pain Consistency: constant Location: LLQ Severity: severe Quality: sharp Radiation: none Migration to: no migration Exacerbating factors: nothing Relieving factors: nothing Associated Symptoms: Reports chills, nausea and vomiting; Denies change in stool character, constipation, diarrhea, dysuria, fever(s), hematochezia, hematemesis, melena and syncope Review of Systems Const: Reports: chills; Denies: fever(s), body aches, fatigue or malaise Eyes: Denies: change in vision ENMT: Denies: throat pain or odynophagia Card: Denies: chest pain, palpitations, lightheadedness, syncope or pre-syncope Resp: Denies: dyspnea GI: Reports: abdominal pain, nausea and vomiting; Denies: hematemesis, diarrhea, constipation, change in stool character, hematochezia or melena : Denies: flank pain, difficulty voiding, dysuria, urinary frequency or urinary urgency Musc: Denies: neck pain, back pain, extremity pain or joint pain Skin/Breast: Denies: rash Neuro: Denies: headache(s), numbness in extremities, weakness in extremities, sensory changes, difficulty walking or dizziness [facility] ED PFSH: Medical History ADHD Chronic post-traumatic stress disorder Diverticulitis of both large and small intestine with abscess with bleeding DVT (deep venous thrombosis) Fibromyalgia GERD (gastroesophageal reflux disease) Hypertension IBS (irritable bowel syndrome) Insomnia Schizoaffective disorder, bipolar type Seizures Sleep apnea Type 2 diabetes mellitus with diabetic polyneuropathy Surgical History History of dental surgery History of loop electrosurgical excision procedure (LEEP) (06/13/20) DX: HEVER-2. Performed by Dr. Tai at [facility] in [place], [place] S/P colon resection (~2019) Due to diverticulitis. S/P exploratory laparotomy (~2019) scar tissue following colon resection S/P tonsillectomy and adenoidectomy (~2008) Family History Mother Hypertension Ovarian cancer Hypercholesteremia Father Hypertension Grandmother Hypertension Maternal and Paternal Diabetes Paternal Cervical cancer Maternal Grandfather Hypertension Maternal and Paternal Diabetes Maternal Stroke Maternal and Paternal Family/Other Hypercholesteremia Maternal side in general Uterine cancer Maternal Aunt Social History Smoking and tobacco status: former smoker Quit status (tobacco): has quit using tobacco Year quit tobacco: 2017 Former quit date comment: Was 2-4 PPD. Started age 9. Alcohol intake: current Alcohol intake frequency: holidays/special occasions only History of recent travel: No Female Reproductive History: Spontaneous abortions: No Physical Exam Const: COMMON NORMALS: no acute distress, patient oriented x3, no limitations and alert GENERAL APPEARANCE: cooperative NUTRITIONAL APPEARANCE: obese morbidly obese ORIENTATION/CONSCIOUSNESS: Yes awake, Yes oriented to person, Yes oriented to place and Yes oriented to time HENMT: COMMON NORMALS: normocephalic and atraumatic HEAD & SCALP: normal to inspection, normocephalic and atraumatic Resp: COMMON NORMALS: normal respiratory effort and clear to auscultation bilaterally AUSCULTATION: clear to auscultation bilaterally Cardio: COMMON NORMALS: regular rate and regular rhythm RATE: regular rate RHYTHM: regular rhythm GI: COMMON NORMALS: Normal to inspection, nondistended, normoactive bowel sounds present and Soft to palpation INSPECTION: Yes normal to inspection AUSCULTATION: Yes normoactive bowel sounds PALPATION: Yes Soft to palpation and Yes Tenderness to palpation present (GI) (diffusely but mainly to LLQ) OTHER: exam somewhat limited secondary to body habitus : COMMON NORMALS: Yes no CVA tenderness BLADDER/KIDNEY EXAM: Yes no CVA tenderness Back/Pelvis: COMMON NORMALS: no CVA tenderness Extremity: COMMON NORMALS: normal to inspection Neuro: HAMLET COMA SCALE: document GCS findings Hamlet coma scale eye opening: Spontaneous Hamlet coma scale verbal response: Orientated Hamlet coma scale motor response: Obey commands Hamlet coma scale total score: 15 COMMON NORMALS: patient oriented x3 SENSORIUM/ORIENTATION: Yes alert, Yes oriented to person, Yes oriented to place and Yes oriented to time Skin: COMMON NORMALS: no rashes or lesions noted GENERAL SKIN EXAM: no rashes or lesions noted TRAUMA: no lacerations or abrasions Course Vital Signs: Vital signs: Vital Signs Temperature 97.6 F 11/22/20 09:19 Pulse Rate 70 11/22/20 12:03 Respiratory Rate 15 11/22/20 12:03 Blood Pressure 148/88 11/22/20 12:03 Pulse Oximetry 98 11/22/20 12:03 MDM - Abdominal Pain MDM Narrative: Medical decision making narrative: Patient clinically appears well. Her vitals are normal. CT scan showing no complications related to her previous colon resection or recurrent diverticulitis. She has a good sized L ovarian cyst. Possible stranding around her L kidney-recommended correlation for pyelo. She has no urinary symptoms, no flank pain, and her UA is completely normal. No other abnormalities noted. Labs are fairly unremarkable. She needs better control of her diabetes-glucose 340s. Recommend follow up with PCP this week/early next week for re-evaluation. Return to ED precautions given. Lab Data: Attestation: I reviewed the patient's lab results. Labs: Lab Results 11/22/20 11/22/20 11/22/20 09:45 09:45 09:45 WBC 8.1 10^3/uL 10^3/ uL (4.0-10.0) RBC 5.01 10^6/uL 10^6 /uL (4.1-5.3) Hgb 14.6 g/dL g/dL (11.5-15.3) Hct 44.5 % % (37.0-47.0) MCV 88.8 fl fl (81-99) MCH 29.1 pg pg (28.0-34.0) MCHC 32.8 g/dL g/dL (30.0-36.0) RDW 13.2 % % (12.1-15.1) Plt Count 210 10^3/cmm 10^3 /cmm (130-400) MPV 10.9 fL H fL (7.4-10.4) Neut % (Auto) 79.2 % % Lymph % (Auto) 13.7 % % [place] % (Auto) 6.3 % % Eos % (Auto) 0.1 % % Baso % (Auto) 0.2 % % Neut # (Auto) 6.37 10^3/uL 10^3 /uL (1.8-7.7) Lymph # (Auto) 1.1 10^3/uL 10^3/ uL (0.8-4.8) [place] # (Auto) 0.5 10^3/uL 10^3/ uL (0.2-0.9) Eos # (Auto) 0.0 10^3/uL 10^3/ uL (0.0-0.8) Baso # (Auto) 0.0 10^3/uL 10^3/ uL (0.0-0.1) Nucleated RBC % (a uto) 0 % % Nucleated RBCs # 0.0 /100WBC /100W BC Sodium 132 mmol/L L mmol /L (136-145) Potassium 4.6 mmol/L mmol/L (3.5-5.1) Chloride 97 mmol/L L mmol/ L (98-107) Carbon Dioxide 25 mmol/L mmol/L (22-29) Anion Gap 14.6 (5-19) BUN 12 mg/dL mg/dL (6-20) Creatinine 0.4 mg/dL L mg/dL (0.5-0.9) GFR Calculation 185.0 mL/min H mL /min (90-130) Glucose 342 mg/dL H mg/dL (65-115) Calculated Osmolal ity 287 mOsm/kg mOsm/ kg (285-295) Lactic Acid Calcium 9.1 mg/dL mg/dL (8.5-10.5) Total Bilirubin 0.4 mg/dL mg/dL (0.15-1.2) AST 14 U/L U/L (0-32) ALT 11 U/L U/L (0-33) Alkaline Phosphata se 109 IU/L H IU/L (35-105) Total Protein 7.5 g/dL g/dL (6.6-8.7) Albumin 3.6 g/dL g/dL (3.5-5.2) Globulin 3.9 g/dL g/dL (1.3-4.6) Lipase 22 U/L U/L (13-60) HCG, Qual Negative (Negative) Urine Color Urine Appearance Urine pH Ur Specific Gravit y Urine Protein Urine Glucose (UA) Urine Ketones Urine Blood Urine Nitrate Urine Bilirubin Urine Urobilinogen Ur Leukocyte Yue ase 11/22/20 11/22/20 09:45 09:45 WBC RBC Hgb Hct MCV MCH MCHC RDW Plt Count MPV Neut % (Auto) Lymph % (Auto) [place] % (Auto) Eos % (Auto) Baso % (Auto) Neut # (Auto) Lymph # (Auto) [place] # (Auto) Eos # (Auto) Baso # (Auto) Nucleated RBC % (a uto) Nucleated RBCs # Sodium Potassium Chloride Carbon Dioxide Anion Gap BUN Creatinine GFR Calculation Glucose Calculated Osmolal ity Lactic Acid 1.4 mmol/L mmol/L (0.5-2.2) Calcium Total Bilirubin AST ALT Alkaline Phosphata se Total Protein Albumin Globulin Lipase HCG, Qual Urine Color Yellow (Yellow) Urine Appearance Clear (CLEAR) Urine pH 6 (5-7) Ur Specific Gravit y 1.010 (1.005-1.030) Urine Protein Neg (Negative) Urine Glucose (UA) Norm (Normal) Urine Ketones Negative (Negative) Urine Blood Neg (Negative) Urine Nitrate Negative (Negative) Urine Bilirubin Neg (Negative) Urine Urobilinogen Norm mg/dL mg/dL (Negative) Ur Leukocyte Yue ase Negative (Negative) Imaging Data ^: CT Abd/Pel: Radiologist's impression: [address] [address] [address] Scan Report Signed Patient: Katheirne Oro Unit #: [id number] : 1990 Age/Sex: 30 / F ADM Date: 11/22/20 Loc: ER Room/Bed: Attending Dr: Ordering Provider/Ordering MD: Qing Joseph Date of Service: 11/22/20 Procedure(s): CT abdomen pelvis w con* [id number] Accession Number(s): [id number] Report Number: [id number] WS: [id number] CT ABDOMEN AND PELVIS WITH CONTRAST HISTORY: LEFT abdominal pain. History of abscess. TECHNIQUE: Imaging performed of the abdomen and pelvis with IV contrast. Single phase imaging of the abdomen. Coronal and sagittal reformats are submitted. All CT scans at [facility] use at least one of these dose optimization techniques: automated exposure control; mA and/or kV adjustment per patient size (includes targeted exams where dose is matched to clinical indication); or iterative reconstruction. IV CONTRAST: Omnipaque 300; 95 mL IV. Oral contrast: No DLP: 2568.1 mGy.cm COMPARISON: 06/29/2019. Lower thorax: Lung bases are clear. Heart is normal size. Small hiatal hernia. Liver/biliary system: Mildly enlarged liver with hepatic steatosis. Portal vein is normal. Gallbladder: Normal. No gallstones or wall thickening. No pericholecystic fluid. Pancreas: Normal size pancreas and pancreatic duct. No adjacent inflammation. Spleen: Mild splenomegaly. Spleen measures 14 cm in length which is similar to the prior examination. Adrenal glands: Normal. Right kidney: Normal. Left kidney: Mild perinephric stranding and mild enlargement of the LEFT kidney. There is very slight delayed excretion from the kidney. Mild enhancement of the pelvis and ureter. No obstructing stones are identified within the ureter. Aorta: Normal. Lymphadenopathy: There are a few scattered mesenteric lymph nodes. None of these lymph nodes are significantly enlarged. Free fluid: None. GI tract: The appendix is normal. No GI tract obstruction. Anastomosis at the sigmoid colon is intact. No adjacent inflammation or obstruction. Abdominal wall: Diastases of the midline musculature. Pelvis: Uterus is in normal position. There is an IUD present. Bilateral ovarian cysts. The largest on the LEFT measures 2.7 x 3.8 cm. Bones: Unremarkable. CT/CT abdomen pelvis w con* [id number] IMPRESSION: 1. Mild enlargement and perinephric stranding around the LEFT kidney and mild delay of excretion. No obstructing stone or process identified. Correlate for possible pyelonephritis and urinary tract infection. No hydronephrosis. 2. Sigmoid anastomosis is stable. No recurrent abscess or acute diverticulitis. 3. LEFT ovarian cyst. Dictated By: Dorota Espinoza DO Signed By: Dorota Espinoza DO Signed Date/Time: 11/22/20 1125 DD/ 1117 Discharge Plan Discharge Patient Disposition: Home Clinical Impression: Cyst of left ovary Condition: Stable Prescriptions: New Zofran 4 mg tablet 4 mg PO Q6H PRN (Reason: nausea and vomiting) Qty: 14 RF: 0 acetaminophen-codeine 300-30 mg tablet 1 tab PO Q6H PRN (Reason: pain) Qty: 14 RF: 0 No Action metronidazole 500 mg tablet 500 mg PO BID 5 Days Qty: 10 RF: 0 Rebekah 14 mcg/24 hrs (3 yrs) 13.5 mg intrauterine device 1 device INTRAUTERI ONCE RF: 0 promethazine 25 mg suppository 25 mg KS Q4H PRN (Reason: nausea, vomiting) Qty: 30 RF: 1 levetiracetam [Keppra] 500 mg tablet 500 mg PO BID RF: 0 ziprasidone HCl [Geodon] 60 mg capsule 60 mg PO BID Qty: 60 RF: 2 amitriptyline 150 mg tablet See Rx Instructions .ROUTE .COMPLEX Qty: 30 RF: 2 ramelteon 8 mg tablet 8 mg PO .at bedtime Qty: 30 RF: 2 omeprazole 40 mg capsule,delayed release(DR/EC) 40 mg PO DAILY 84 Days Qty: 90 RF: 1 buspirone 15 mg tablet 15 mg PO TID Qty: 90 RF: 2 ziprasidone HCl [Geodon] 40 mg capsule 40 mg PO BID Qty: 60 RF: 2 propranolol 40 mg tablet 40 mg PO TID Qty: 120 RF: 2 cetirizine [Zyrtec] 10 mg Tablet 10 mg PO DAILY PRN (Reason: Allergy Symptoms) RF: 0 Gen Lax 1 tab PO PRN RF: 0 tizanidine 4 mg Tablet 4 mg PO TID PRN (Reason: UNKNOWN) RF: 0 pregabalin [Lyrica] 225 mg Capsule 225 mg PO BID RF: 0 Lantus Solostar U-100 Insulin 100 unit/mL (3 mL) insulin pen 40 unit SUBCUT DAILY RF: 0 Discharge Orders: Discharge ED (Routine); Ordered 11/22/20 Ordered By: Qing Joseph Referrals: Penny Sullivan, [employer]IS[employer] OPERATOR [Primary Care Provider] - Patient Instructions: Ovarian Cyst (ED) Activity Restrictions/Additional Instructions: As we discussed your CT today did not show any evidence for diverticulitis, abscess, perforation, or any other complications. You did have a left ovarian cyst that could be causing you discomfort. Please follow-up with primary care at the end of the week/early next week for reevaluation. Return to the emergency department for severe worsening abdominal pain, continued episodes of vomiting, severe diarrhea constipation, fevers, or any other concerns you may have. I hope you begin to feel better soon. Coding Level of Care Code ED Sewer Maintenance Supervisor for Chg Fwd Exam Comprehensive Documented by User: Neeraj Swan DO 11/27/20 06:40 HPI - Abdominal Pain General: Chief Complaint: Abdominal Pain Stated Complaint: Left side abdominal pain, nausea Time Seen by Provider: 11/22/20 09:13 [facility] ED PFSH: Medical History ADHD Chronic post-traumatic stress disorder Diverticulitis of both large and small intestine with abscess with bleeding DVT (deep venous thrombosis) Fibromyalgia GERD (gastroesophageal reflux disease) Hypertension IBS (irritable bowel syndrome) Insomnia Schizoaffective disorder, bipolar type Seizures Sleep apnea Type 2 diabetes mellitus with diabetic polyneuropathy Surgical History History of dental surgery History of loop electrosurgical excision procedure (LEEP) (06/13/20) DX: HEVER-2. Performed by Dr. Tai at [facility] in [place], [place] S/P colon resection (~2019) Due to diverticulitis. S/P exploratory laparotomy (~2019) scar tissue following colon resection S/P tonsillectomy and adenoidectomy (~2008) Family History Mother Hypertension Ovarian cancer Hypercholesteremia Father Hypertension Grandmother Hypertension Maternal and Paternal Diabetes Paternal Cervical cancer Maternal Grandfather Hypertension Maternal and Paternal Diabetes Maternal Stroke Maternal and Paternal Family/Other Hypercholesteremia Maternal side in general Uterine cancer Maternal Aunt Social History Smoking and tobacco status: former smoker Quit status (tobacco): has quit using tobacco Year quit tobacco: 2017 Former quit date comment: Was 2-4 PPD. Started age 9. Alcohol intake: current Alcohol intake frequency: holidays/special occasions only History of recent travel: No Course Vital Signs: Vital signs: Vital Signs Temperature 97.6 F 11/22/20 09:19 Pulse Rate 70 11/22/20 12:03 Respiratory Rate 15 11/22/20 12:03 Blood Pressure 148/88 11/22/20 12:03 Pulse Oximetry 98 11/22/20 12:03 MDM - Abdominal Pain MDM Narrative: Medical decision making narrative: Reviewed case with ANNA Serrano agree with assessment and plan Lab Data: Labs: Lab Results 11/22/20 11/22/20 11/22/20 09:45 09:45 09:45 WBC 8.1 10^3/uL 10^3/ uL (4.0-10.0) RBC 5.01 10^6/uL 10^6 /uL (4.1-5.3) Hgb 14.6 g/dL g/dL (11.5-15.3) Hct 44.5 % % (37.0-47.0) MCV 88.8 fl fl (81-99) MCH 29.1 pg pg (28.0-34.0) MCHC 32.8 g/dL g/dL (30.0-36.0) RDW 13.2 % % (12.1-15.1) Plt Count 210 10^3/cmm 10^3 /cmm (130-400) MPV 10.9 fL H fL (7.4-10.4) Neut % (Auto) 79.2 % % Lymph % (Auto) 13.7 % % [place] % (Auto) 6.3 % % Eos % (Auto) 0.1 % % Baso % (Auto) 0.2 % % Neut # (Auto) 6.37 10^3/uL 10^3 /uL (1.8-7.7) Lymph # (Auto) 1.1 10^3/uL 10^3/ uL (0.8-4.8) [place] # (Auto) 0.5 10^3/uL 10^3/ uL (0.2-0.9) Eos # (Auto) 0.0 10^3/uL 10^3/ uL (0.0-0.8) Baso # (Auto) 0.0 10^3/uL 10^3/ uL (0.0-0.1) Nucleated RBC % (a uto) 0 % % Nucleated RBCs # 0.0 /100WBC /100W BC Sodium 132 mmol/L L mmol /L (136-145) Potassium 4.6 mmol/L mmol/L (3.5-5.1) Chloride 97 mmol/L L mmol/ L (98-107) Carbon Dioxide 25 mmol/L mmol/L (22-29) Anion Gap 14.6 (5-19) BUN 12 mg/dL mg/dL (6-20) Creatinine 0.4 mg/dL L mg/dL (0.5-0.9) GFR Calculation 185.0 mL/min H mL /min (90-130) Glucose 342 mg/dL H mg/dL (65-115) Calculated Osmolal ity 287 mOsm/kg mOsm/ kg (285-295) Lactic Acid Calcium 9.1 mg/dL mg/dL (8.5-10.5) Total Bilirubin 0.4 mg/dL mg/dL (0.15-1.2) AST 14 U/L U/L (0-32) ALT 11 U/L U/L (0-33) Alkaline Phosphata se 109 IU/L H IU/L (35-105) Total Protein 7.5 g/dL g/dL (6.6-8.7) Albumin 3.6 g/dL g/dL (3.5-5.2) Globulin 3.9 g/dL g/dL (1.3-4.6) Lipase 22 U/L U/L (13-60) HCG, Qual Negative (Negative) Urine Color Urine Appearance Urine pH Ur Specific Gravit y Urine Protein Urine Glucose (UA) Urine Ketones Urine Blood Urine Nitrate Urine Bilirubin Urine Urobilinogen Ur Leukocyte Yue ase 11/22/20 11/22/20 09:45 09:45 WBC RBC Hgb Hct MCV MCH MCHC RDW Plt Count MPV Neut % (Auto) Lymph % (Auto) [place] % (Auto) Eos % (Auto) Baso % (Auto) Neut # (Auto) Lymph # (Auto) [place] # (Auto) Eos # (Auto) Baso # (Auto) Nucleated RBC % (a uto) Nucleated RBCs # Sodium Potassium Chloride Carbon Dioxide Anion Gap BUN Creatinine GFR Calculation Glucose Calculated Osmolal ity Lactic Acid 1.4 mmol/L mmol/L (0.5-2.2) Calcium Total Bilirubin AST ALT Alkaline Phosphata se Total Protein Albumin Globulin Lipase HCG, Qual Urine Color Yellow (Yellow) Urine Appearance Clear (CLEAR) Urine pH 6 (5-7) Ur Specific Gravit y 1.010 (1.005-1.030) Urine Protein Neg (Negative) Urine Glucose (UA) Norm (Normal) Urine Ketones Negative (Negative) Urine Blood Neg (Negative) Urine Nitrate Negative (Negative) Urine Bilirubin Neg (Negative) Urine Urobilinogen Norm mg/dL mg/dL (Negative) Ur Leukocyte Yue ase Negative (Negative) Discharge Plan Discharge Patient Disposition: Home Clinical Impression: Cyst of left ovary Condition: Stable Prescriptions: New Zofran 4 mg tablet 4 mg PO Q6H PRN (Reason: nausea and vomiting) Qty: 14 RF: 0 acetaminophen-codeine 300-30 mg tablet 1 tab PO Q6H PRN (Reason: pain) Qty: 14 RF: 0 No Action metronidazole 500 mg tablet 500 mg PO BID 5 Days Qty: 10 RF: 0 Rebekah 14 mcg/24 hrs (3 yrs) 13.5 mg intrauterine device 1 device INTRAUTERI ONCE RF: 0 promethazine 25 mg suppository 25 mg KS Q4H PRN (Reason: nausea, vomiting) Qty: 30 RF: 1 levetiracetam [Keppra] 500 mg tablet 500 mg PO BID RF: 0 ziprasidone HCl [Geodon] 60 mg capsule 60 mg PO BID Qty: 60 RF: 2 amitriptyline 150 mg tablet See Rx Instructions .ROUTE .COMPLEX Qty: 30 RF: 2 ramelteon 8 mg tablet 8 mg PO .at bedtime Qty: 30 RF: 2 omeprazole 40 mg capsule,delayed release(DR/EC) 40 mg PO DAILY 84 Days Qty: 90 RF: 1 buspirone 15 mg tablet 15 mg PO TID Qty: 90 RF: 2 ziprasidone HCl [Geodon] 40 mg capsule 40 mg PO BID Qty: 60 RF: 2 propranolol 40 mg tablet 40 mg PO TID Qty: 120 RF: 2 cetirizine [Zyrtec] 10 mg Tablet 10 mg PO DAILY PRN (Reason: Allergy Symptoms) RF: 0 Gen Lax 1 tab PO PRN RF: 0 tizanidine 4 mg Tablet 4 mg PO TID PRN (Reason: UNKNOWN) RF: 0 pregabalin [Lyrica] 225 mg Capsule 225 mg PO BID RF: 0 Lantus Solostar U-100 Insulin 100 unit/mL (3 mL) insulin pen 40 unit SUBCUT DAILY RF: 0 Discharge Orders: Discharge ED (Routine); Ordered 11/22/20 Ordered By: Qing Joseph Referrals: Penny Sullivan [employer]ISER OPERATOR [Primary Care Provider] - Patient Instructions: Ovarian Cyst (ED) Activity Restrictions/Additional Instructions: As we discussed your CT today did not show any evidence for diverticulitis, abscess, perforation, or any other complications. You did have a left ovarian cyst that could be causing you discomfort. Please follow-up with primary care at the end of the week/early next week for reevaluation. Return to the emergency department for severe worsening abdominal pain, continued episodes of vomiting, severe diarrhea constipation, fevers, or any other concerns you may have. I hope you begin to feel better soon. Coding Level of Care Code ED Sewer Maintenance Supervisor for Margieg Fwd Exam Comprehensive
[2020-11-22 09:19] VITALS: BP 149/90; PULSE 89; RESP 18; TEMP 36.4; O2SAT 95; BMI 44.9
--- NOTE | 2020-11-22 09:27 | CT_ITS ---
WS: [id number] CT ABDOMEN AND PELVIS WITH CONTRAST HISTORY: LEFT abdominal pain. History of abscess. TECHNIQUE: Imaging performed of the abdomen and pelvis with IV contrast. Single phase imaging of the abdomen. Coronal and sagittal reformats are submitted. All CT scans at [facility] use at [address] one of these dose optimization techniques: automated exposure control; mA and/or kV adjustment per patient size (includes targeted exams where dose is matched to clinical indication); or iterative re construction. IV CONTRAST: Omnipaque 300; 95 mL IV. Oral contrast: No DLP: 2568.1 mGy.cm COMPARISON: 06/29/2019. Lower thorax: Lung bases are clear. Heart is normal size. Small hiatal hernia. Liver/biliary system: Mildly enlarged liver with hepatic steatosis. Portal vein is normal. Gallbladder: Normal. No gallstones or wall thickening. No pericholecystic fluid. Pancreas: Normal size pancreas and pancreatic duct. No adjacent inflammation. Spleen: Mild splenomegaly. Spleen measures 14 cm in length which is similar to the prior examination. Adrenal glands: Normal. Right kidney: Normal. Left kidney: Mild perinephric stranding and mild enlargement of the LEFT kidney. There is very slight delayed excretion from the kidney. Mild enhancement of the pelvis and ureter. No obstructing stones are identified within the ureter. Aorta: Normal. Lymphadenopathy: There are a few scattered mesenteric lymph nodes. None of these lymph nodes are sign ificantly enlarged. Free fluid: None. GI tract: The appendix is normal. No GI tract obstruction. Anastomosis at the sigmoid colon is intact . No adjacent inflammation or obstruction. Abdominal wall: Diastases of the midline musculature. Pelvis: Uterus is in normal position. There is an IUD present. Bilateral ovarian cysts. The largest o n the LEFT measures 2.7 x 3.8 cm. Bones: Unremarkable. CT/CT abdomen pelvis w con* [id number] IMPRESSION: 1. Mild enlargement and perinephric stranding around the LEFT kidney and mild delay of excretion. No obstructing stone or process identified. Correlate for p ossible pyelonephritis and urinary tract infection. No hydronephrosis. 2. Sigmoid anastomosis is stable. No recurrent abscess or acute diverticulitis . 3. LEFT ovarian cyst.
[2020-11-22] MEDS: morphine 4 mg/mL SDV 1 mL IVP (10:01)
[2020-11-22] MEDS: ondansetron 2 mg/ML SDV 2 mL 4 MG IVP (10:01)
[2020-11-22 10:02] VITALS: BP 148/80; PULSE 87; RESP 15; O2SAT 98
[2020-11-22 10:09] LABS: Add Urine Microscopic? NO; Charge for UA Resulting for Rev
[2020-11-22 10:11] LABS: Basophils % 0.2 %; Eosinophils % 0.1 %; Hematocrit 44.5 % (37.0-47.0); Hemoglobin 14.6 g/dL (11.5-15.3); Lymphocytes # 1.1 10^3/uL (0.8-4.8); Lymphocytes % 13.7 %; Mean Corpuscular HGB Conc 32.8 g/dL (30.0-36.0); Mean Corpuscular Hemoglobin 29.1 pg (28.0-34.0); Mean Corpuscular Volume 88.8 fl (81-99); Mean Platelet Volume 10.9 fL (7.4-10.4); Monocytes # 0.5 10^3/uL (0.2-0.9); Monocytes % 6.3 %; Neutrophils # 6.37 10^3/uL (1.8-7.7); Neutrophils % 79.2 %; Nucleated Red Blood Cells % 0 %; Platelet Count 210 10^3/cmm (130-400); Red Blood Count 5.01 10^6/uL (4.1-5.3); Red Cell Distribution Width 13.2 % (12.1-15.1); White Blood Count 8.1 10^3/uL (4.0-10.0)
[2020-11-22 10:24] LABS: Bilirubin Urine Neg (Negative); Blood Urine Neg (Negative); Glucose Urine UA Norm (Normal); Ketones Urine Negative (Negative); Leukocyte Esterase Urine Negative (Negative); Nitrate Urine Negative (Negative); Protein Urine Neg (Negative); Urine Appearance Clear (CLEAR); Urine Color Yellow (Yellow); Urobilinogen Urine Norm (Negative); pH Urine 6 (5-7)
[2020-11-22 10:30] LABS: Albumin Level 3.6 g/dL (3.5-5.2); Alkaline Phosphatase 109 IU/L (35-105); Blood Urea Nitrogen 12 mg/dL (6-20); Calcium 9.1 mg/dL (8.5-10.5); Carbon Dioxide 25 mmol/L (22-29); Chloride 97 mmol/L (98-107); Globulin 3.9 g/dL (1.3-4.6); Glucose 342 mg/dL (65-115); Lipase 22 U/L (13-60); Osmolality Calculated 287 mOsm/kg (285-295); Sodium 132 mmol/L (136-145); Total Bilirubin 0.4 mg/dL (0.15-1.2); Total Protein 7.5 g/dL (6.6-8.7)
[2020-11-22 10:33] LABS: Alanine Aminotransferase 11 U/L (0-33); Anion Gap 14.6 (5-19); Aspartate Amino Transferase 14 U/L (0-32); Potassium 4.6 mmol/L (3.5-5.1)
[2020-11-22 10:38] LABS: Lactic Sepsis W/Reflex 1.4 mmol/L (0.5-2.2)
[2020-11-22 10:42] LABS: HCG, Serum Qual Negative (Negative)
[2020-11-22] MEDS: iohexol 300 mg/mL 100 mL Btl IV (10:51)
[2020-11-22 12:00] VITALS: BP 148/88; PULSE 70; RESP 15; O2SAT 98
[2020-11-22 12:03] VITALS: BP 148/88; PULSE 70; RESP 15; O2SAT 98
== END 2020-11-22 12:03 | disposition home or self-care (01) ==
PROVIDERS: Emergency Provider Physician Assistant; PCP Nurse Practitioner Primary Care
DX: N83.202 Unspecified ovarian cyst, left side (principal); Z79.4 Long term (current) use of insulin; I10 Essential (primary) hypertension; E11.42 Type 2 diabetes mellitus with diabetic polyneuropathy; Z87.891 Personal history of nicotine dependence
CPT/HCPCS: 74177; 80053; 81003; 83605; 83690; 84703; 85025; 96374; 96375; 99284; J2270; J2405; Q9967

== ENCOUNTER → 2020-12-13 13:47 | Outpatient (BNVA) | payer MEDICAID, SELFPAY | PROVIDERS: PCP Nurse Practitioner Primary Care; Visit Provider Obstetrics & Gynecology | DX: N83.209 Unspecified ovarian cyst, unspecified side (principal) | CPT/HCPCS: 76830 ==

== ENCOUNTER → 2020-12-27 09:06 | Outpatient (BNVA) | payer MEDICAID, SELFPAY | PROVIDERS: PCP Nurse Practitioner Primary Care; Visit Provider Counselor Professional | DX: F43.12 Post-traumatic stress disorder, chronic (principal) | CPT/HCPCS: 90834 ==

== ENCOUNTER → 2021-02-08 10:15 | Outpatient (BNVA) | payer MEDICAID, SELFPAY | PROVIDERS: PCP Nurse Practitioner Primary Care; Visit Provider Obstetrics & Gynecology | DX: Z12.4 Encounter for screening for malignant neoplasm of cervix (principal); N89.8 Other specified noninflammatory disorders of vagina | CPT/HCPCS: 87481; 87512; 87624; 87798; 87799 ==

== ENCOUNTER → 2021-04-25 11:43 | Outpatient (BNVA) | payer MEDICAID, SELFPAY | PROVIDERS: PCP Nurse Practitioner Primary Care; Visit Provider Nurse Practitioner Family | DX: Z32.02 Encounter for pregnancy test, result negative (principal) | CPT/HCPCS: 81025 ==

== ENCOUNTER → 2021-04-26 12:15 | Outpatient (BNVA) | payer MEDICAID, SELFPAY | PROVIDERS: PCP Nurse Practitioner Primary Care; Visit Provider Obstetrics & Gynecology | DX: N92.6 Irregular menstruation, unspecified (principal) | CPT/HCPCS: 84702 ==

== ENCOUNTER → 2021-07-12 09:39 | Outpatient (BNVA) | payer MEDICAID, SELFPAY | PROVIDERS: PCP Nurse Practitioner Primary Care; Visit Provider Registered Nurse | DX: Z79.899 Other long term (current) drug therapy (principal) | CPT/HCPCS: 80053; 80061; 82306; 83036; 85025 ==

== ENCOUNTER 2021-11-06 10:18 | Day surgery (SDC) | payer MEDICAID, SELFPAY ==
[2021-11-05 11:42] VITALS: BMI 45.1
[2021-11-06] VITALS (7 sets, daily range): BP systolic 126–162; BP diastolic 83–97; PULSE 75–90; RESP 16–20; TEMP 36.1–36.6; O2SAT 92–98
[2021-11-06] MEDS: sodium chloride 0.9% 1,000 ML 30 ML IV (10:58)
[2021-11-06 11:12] LABS: Glucose Point of Care 298 mg/dL (70-110)
--- NOTE | 2021-11-06 11:31 | W.PM.OPSUD ---
Surgery/Procedure H&P Update DATE OF PROCEDURE: November 06, 2021 DATE H&P PERFORMED: 11/02/21 H&P UPDATE INFORMATION: I have reviewed H&P completed within last 30 days, I have examined patient prior to procedure and No changes to prior documentation PREOP DIAGNOSIS: iud complication PLANNED PROCEDURE: Operation Date: 11/06/21 12:15 Proposed Procedures p Hysteroscopy with removal of foreign body(IUD) 40073, Insertion of IUD 52183,T83.39XA,Z30.9(Not Applicable) - Lucinda Wahl MD Related Problem List Diagnoses (1) IUD strings lost: (2) Contraception management: Qualifiers: Contraceptive encounter type: IUD management IUD management: routine checking Qualified Code(s): Z30.431 - Encounter for routine checking of intrauterine contraceptive device
--- NOTE | 2021-11-06 11:35 | ANES.PREANE2 ---
Pre-Anesthetic Assessment Height/Weight: Height 1.65 m Weight 122.924 kg Temp Pulse Resp BP Pulse Ox O2 Del Method 97 F L 75 18 162/97 97 11/06/21 10:37 11/06/21 10:37 11/06/21 10:37 11/06/21 10:37 11/06/21 10:37 11/06/21 10:54 Preop Diagnosis: iud complication Operation Date: 11/06/21 12:15 Proposed Procedures p Hysteroscopy with removal of foreign body(IUD) 42517, Insertion of IUD 67776,T83.39XA,Z30.9(Not Applicable) - Lucinda Wahl MD Familial anesthetic complications: Reports waking up under anesthesia several times Was Beta Jairon taken within 24 hours: Yes Was Clonidine taken within 24 hours: N/A Last intake: Intake Last Liquid Date 11/05/21 Last Liquid Time 23:00 Last Solid Date 11/05/21 Last Solid Time 21:30 Social No alcohol and No tobacco Exam alert, oriented x 3, clear to auscultation bilaterally and regular rate & rhythm Airway Submandibular: within normal limits Cervical ROM: within normal limits Mallampati: Class II Dentition: false Pulmonary Sleep Apnea CV/HEM Deep Vein Thrombosis and Hypertension None reported Hepatic None reported GI IBS Metabolic Diabetes Mellitus and Morbid Obesity [facility] Fibromyalgia Neuropsych Neuropathy and Seizure Schizoaffective disorder Anesthetic Plan ASA status: 3 Anesthesia: Anesthesia Evaluation and General Other: We discussed risk and benefits of general anesthesia including PONV, sore throat (sometimes severe), corneal abrasion, positioning and peripheral nerve injuries, life threatening allergic reaction, post operative ICU admission requiring prolonged intubation, aspiration, stroke, heart attack, , and rare incidences of recall. Patient consents to proceed with general anesthesia. Risk of > 500 ml blood loss (7ml/kg in children): No Medications/Allergies Home Medications Medication Instructions Recorded Confirmed Last Taken Type levonorgestrel 14 mcg/24 hrs (3 1 device intrauterine ONCE 02/25/19 11/05/21 06/12/20 History yrs) 13.5 mg intrauterine device (Rebekah) Gen Lax 1 tab PO PRN 06/29/19 11/05/21 11/05/21 History cetirizine 10 mg tablet (Zyrtec) 10 mg PO DAILY PRN Allergy Symptoms 0511/05/21 11/05/21 History pregabalin 225 mg capsule (Lyrica) 225 mg PO BID 06/29/19 11/05/21 11/06/21 05:00 History tizanidine 4 mg tablet 4 mg PO TID PRN UNKNOWN 06/29/19 11/05/21 11/05/21 History promethazine 25 mg rectal 25 mg ME Q4H PRN nausea, vomiting 10/30/19 11/05/21 06/12/20 Rx suppository #30 ea insulin glargine 100 unit/mL (3 40 unit SUBCUT DAILY 02/07/20 11/05/21 11/05/21 History mL) subcutaneous pen (Lantus Solostar U-100 Insulin) omeprazole 40 mg capsule,delayed 40 mg PO DAILY 12 weeks #90 caps 10/23/20 11/05/21 11/05/21 Rx release ondansetron HCl 4 mg tablet 4 mg PO Q6H PRN nausea and 11/22/20 11/05/21 Unknown Rx (Zofran) vomiting #14 tabs levetiracetam 500 mg tablet 1,000 mg PO BID seizures 12/29/20 11/05/21 11/06/21 05:00 History (Keppra) buspirone 15 mg tablet 15 mg PO TID #90 tabs 10/17/21 11/05/21 11/05/21 Rx propranolol 40 mg tablet 40 mg PO QID #100 tabs 10/17/21 11/05/21 11/06/21 05:00 Rx ziprasidone HCl 40 mg capsule 40 mg PO DAILY #30 caps 10/17/21 11/05/21 11/06/21 05:00 Rx (Geodon) ziprasidone HCl 60 mg capsule 60 mg PO DAILY #30 caps 10/17/21 11/05/21 11/06/21 05:00 Rx (Geodon) Vitamin D3 50,000 unit PO .WEEKLY 11/05/21 11/05/21 11/03/21 History amitriptyline 150 mg tablet 150 mg PO BEDTIME 11/05/21 11/05/21 11/04/21 History Excedrin Migraine 500 mg PO PRN PRN Migraine Headache 11/06/21 11/06/21 Unknown History ramelteon 8 mg tablet (Rozerem) 8 mg PO .at bedtime 11/06/21 11/06/21 11/04/21 History Allergies Allergy/AdvReac Type Severity Reaction Status Date / Time temazepam [From Restoril] Allergy Severe rash Verified 11/05/21 11:37 amoxicillin Allergy Unknown Verified 11/05/21 11:37 aripiprazole [From Abilify] Allergy Unknown Verified 11/05/21 11:37 cefdinir [From Omnicef] Allergy tongue Verified 11/05/21 11:37 swelling, hives, itching ibuprofen Allergy Unknown Verified 11/05/21 11:37 Penicillins Allergy Unknown Verified 11/05/21 11:37 sulfur dioxide Allergy Unknown Verified 11/05/21 11:37 tramadol Allergy Unknown Verified 11/05/21 11:37 Current Medications Generic Name Dose Route Start Last Admin Trade Name Freq PRN Reason Stop Dose Admin Sodium Chloride 1,000 mls @ 30 mls/hr 11/06/21 10:30 11/06/21 10:58 Sodium Chloride 0.9% IV 11/07/21 10:29 30 mls/hr .Q24H FRANCISCO Administration PFSH Anesthesia Medical History ADHD Chronic post-traumatic stress disorder Diverticulitis of both large and small intestine with abscess with bleeding DVT (deep venous thrombosis) Fibromyalgia GERD (gastroesophageal reflux disease) Hypertension IBS (irritable bowel syndrome) Insomnia Psychiatric care Schizoaffective disorder, bipolar type Seizures Sleep apnea Type 2 diabetes mellitus with diabetic polyneuropathy Surgical History History of dental surgery History of loop electrosurgical excision procedure (LEEP) (06/13/20) DX: HEVER-2. Performed by Dr. Tai at [facility] in [place], [place] S/P colon resection (~2019) Due to diverticulitis. S/P exploratory laparotomy (~2019) scar tissue following colon resection S/P tonsillectomy and adenoidectomy (~2008) Family History Mother Hypertension Ovarian cancer Hypercholesteremia Father Hypertension Grandmother Hypertension Maternal and Paternal Diabetes Paternal Cervical cancer Maternal Grandfather Hypertension Maternal and Paternal Diabetes Maternal Stroke Maternal and Paternal Family/Other Hypercholesteremia Maternal side in general Uterine cancer Maternal Aunt Social History Smoking and tobacco status: former smoker Female Reproductive History Spontaneous abortions: No Data Anesthesia Cardiac Studies: No Data to Display
[2021-11-06] MEDS: scopolamine 1.5 Patch 1 PATCH TRANSDERMA (11:41)
[2021-11-06] MEDS: diphenhydrAMINE 50 mg/mL SDV 1mL 12.5 MG IVP (11:42)
[2021-11-06] MEDS: insulin regular-human 100 units/1 mL 8 UNIT SUBCUT (11:47)
[2021-11-06] MEDS: levofloxacin-dextrose 5 % 750 MG/150 ML PREMIX 100 MG IV (12:04)
--- NOTE | 2021-11-06 12:36 | SUR.OPER ---
IUD removed. new iud placed - [facility] lot # [id number] exp june 2023.
--- NOTE | 2021-11-06 12:51 | PM.OP ---
Operative Report Date of procedure: November 06, 2021 Pre-op diagnosis: Preop Diagnosis iud complication Post-op diagnosis: same Post-op findings: Iud removed and replaced Procedure done: hysteroscopy, removal of IUD and replacement of kyleena iud Implants: Kyleena iUD placed Specimens removed/disposition: marielle iud discarded Surgeon: Lucinda Wahl Anesthesia: General IV fluids (mL): 700 Complications: none Condition: stable Disposition: PACU Procedure: The patient was taken to the operating room where monitored anesthesia was administered and to be adequate. She was prepped and draped in the normal sterile fashion in the dorsal lithotomy position in [facility]. A weighted speculum was placed into the vagina and the anterior lip of the cervix grasped with a single-tooth tenaculum. The uterus was sounded to 9 cm. The cervix was dilated to 16 Romanian. The hysteroscope was advanced into the endometrial cavity. There were iud strings visualized. Using the hysteroscopic grasper, the string was grasped and removed. The Kyleena IUD was then placed without difficulty. All instruments were removed. The patient tolerated the procedure well. Sponge lap and needle counts were correct x3. She was taken to the recovery room in stable condition.
--- NOTE | 2021-11-06 12:56 | PM.DCS ---
Discharge Providers Date of Admission: 11/06/21 Date of Discharge: November 06, 2021 Attending Provider at Discharge: Lucinda Wahl MD Primary Care Provider: Penny Sullivan Diagnoses at Discharge Discharge Diagnosis (1) IUD strings lost: Status: Acute (2) Contraception management: Status: Acute Qualifiers: Contraceptive encounter type: IUD management IUD management: routine checking Qualified Code(s): Z30.431 - Encounter for routine checking of intrauterine contraceptive device Reason for Visit Reason for Visit: encounter for contraceptive management, unspecifie Hospital Course Hospital Course The patient was admitted for hysteroscopic IUD removal and replacement with a kyleena iud. She did well postoperatively and was ready for discharge. Discharge Data Studies Completed and Pending Pending at discharge Category Date Time Status ES surgery / GI images Routine Exams 11/06/21 11:32 Ordered OR HCG Qualitative Urine Routine Lab 11/06/21 10:32 Uncollected Laboratory Results POC Glucose 298 mg/dL (70-110) H 11/06/21 11:05 Vitals Last Vital Signs Temp 97 F L 11/06/21 10:37 Pulse 75 11/06/21 10:37 Resp 18 11/06/21 10:37 BP 162/97 11/06/21 10:37 Pulse Ox 97 11/06/21 10:37 O2 Del Method 11/06/21 10:54 Discharge Plan Discharge Patient Disposition: Home Condition: Stable Prescriptions: Continued Rebekah 14 mcg/24 hrs (3 yrs) 13.5 mg intrauterine device 1 device INTRAUTERI ONCE promethazine 25 mg suppository 25 mg OR Q4H PRN (Reason: nausea, vomiting) Qty: 30 1RF levetiracetam [Keppra] 500 mg tablet 1,000 mg PO BID omeprazole 40 mg capsule,delayed release(DR/EC) 40 mg PO DAILY 84 Days Qty: 90 1RF buspirone 15 mg tablet 15 mg PO TID Qty: 90 2RF propranolol 40 mg tablet 40 mg PO QID Qty: 100 2RF Rx Instructions: may take 1tab extra daily as needed for anxiety; monitor and hold if BP<100/60 or if HR<60 beats per minute ziprasidone HCl [Geodon] 60 mg capsule 60 mg PO DAILY Qty: 30 2RF ziprasidone HCl [Geodon] 40 mg capsule 40 mg PO DAILY Qty: 30 2RF cetirizine [Zyrtec] 10 mg Tablet 10 mg PO DAILY PRN (Reason: Allergy Symptoms) Gen Lax 1 tab PO PRN tizanidine 4 mg Tablet 4 mg PO TID PRN (Reason: UNKNOWN) Rx Instructions: PT STATES SHE HASNT TAKEN THIS MEDICATION IN 4-5 DAYS pregabalin [Lyrica] 225 mg Capsule 225 mg PO BID Lantus Solostar U-100 Insulin 100 unit/mL (3 mL) insulin pen 40 unit SUBCUT DAILY ondansetron HCl [Zofran] 4 mg tablet 4 mg PO Q6H PRN (Reason: nausea and vomiting) Qty: 14 0RF amitriptyline 150 mg tablet 150 mg PO BEDTIME Rx Instructions: TAKE ONE TABLET DAILY AT BEDTIME Vitamin D3 50,000 unit PO .WEEKLY Excedrin Migraine 500 mg PO PRN PRN (Reason: Migraine Headache) Rozerem 8 mg tablet 8 mg PO .at bedtime Discharge Orders: Discharge Order (Routine); Ordered 11/06/21 Ordered By: Lucinda Wahl Discharge Attestations Time Spent in Discharge Care*: less than 30 min Quality Metrics Clinical Quality Measures [ No reported AMI, CVA or VTE this stay] Coding Level of Care Code Acute Chg FW DC note Diagnoses IUD strings lost T83.32XA Contraception management Z30.431 Contraceptive encounter type: IUD management IUD management: routine checking
--- NOTE | 2021-11-06 13:15 | PC.NURSE ---
scant amount bleeding noted to sushma pad
--- NOTE | 2021-11-06 15:45 | ANE.PACU2 ---
Inpatient post-anesthesia follow up: Airway intact: Yes Vital signs: Temperature 97.9 F Pulse Rate 81 Respiratory Rate 18 Blood Pressure 153/93 Pulse Oximetry 98 Oxygen Delivery Me thod Room Air Oxygen Flow Rate Fraction of Inspir ed Oxygen Hydration adequate: Yes Nausea and vomiting: No Pain level: 1 Mental status: Baseline
== END 2021-11-06 13:33 | disposition home or self-care (01) ==
PROVIDERS: PCP Nurse Practitioner Primary Care; Visit Provider Obstetrics & Gynecology
PROC: 0UPD8HZ Removal of Contraceptive Device from Uterus and Cervix, Via Natural or Artificial Opening Endoscopic (ICD-10-PCS; CPT 58301; principal; 2021-11-06 12:05)
DX: T83.32XA Displacement of intrauterine contraceptive device, initial encounter (principal)
CPT/HCPCS: 58300; 58301; 36416; 81025; 82962; J1100; J1200; J1815; J1956; J2250; J2405; J2704; J3010; J7030

== ENCOUNTER 2021-12-27 10:02 | Emergency (ER) | payer MEDICAID, SELFPAY ==
[2021-12-27 10:09] VITALS: BP 165/113; PULSE 76; RESP 16; TEMP 36.4; O2SAT 97; BMI 45.7
--- NOTE | 2021-12-27 10:57 | CT_ITS ---
WS: [id number] CT CHEST, ABDOMEN, AND PELVIS TECHNIQUE: Contrast-enhanced CT of the chest, abdomen, and pelvis with coronal and sagittal reformatt ed images. CLINICAL INFORMATION: trauma COMPARISON: None. DLP: 34.[address] scans at [facility] use at least one of these dose optimization techniques: automated e xposure control; mA and/or kV adjustment per patient size (includes targeted exams where dose is matc hed to clinical indication); or iterative reconstruction. CT CHEST: Both lungs are well aerated. No acute pulmonary infiltrates. No pneumothorax. Slight subsegmental ate lectasis in the lower lobes. No significant pleural fluid. No evidence of acute aortic injury or mediastinal hematoma. Normal caliber thoracic aorta. Normal marty cending thoracic aorta. No pericardial effusion. Normal axilla. Normal visualized thoracic spine. CT ABDOMEN AND PELVIS: Hepatomegaly. Diffuse fatty infiltration liver. Normal spleen. Normal portal vein and splenic vein. F atty atrophy of the pancreas. Normal GE junction. Gallbladder is contracted. Adrenal glands are kristofer l. Normal renal parenchymal enhancement. No hydronephrosis. Normal caliber abdominal aorta. IUD. No s ignificant free fluid in the cul-de-sac. Adrenal glands are normal. Normal sigmoid colon. Patulous lower abdominal and pelvic wall. Lumbar spine appears normal. CT/CT chest abd pel w con* IMPRESSION: 1. No acute traumatic findings in the chest abdomen or pelvis.
--- NOTE | 2021-12-27 10:57 | CT_ITS ---
WS: [id number] CT HEAD TECHNIQUE: Noncontrast CT of the head obtained from the skullbase to the vertex. CLINICAL INFORMATION: trauma COMPARISON: CT 2015 DLP: 1442.[address] scans at [facility] use at least one of these dose optimization techniques: automated e xposure control; mA and/or kV adjustment per patient size (includes targeted exams where dose is matc hed to clinical indication); or iterative reconstruction. FINDINGS: No evidence of intracranial hemorrhage or mass effect. Ventricular system and basal cisterns are melton nt. No extra-axial fluid collections. No evidence of mass or mass effect. Normal chacko-white different iation. Paranasal sinuses and mastoid air cells are well aerated. .Normal visualized soft tissues. CT/CT head wo con* [id number] IMPRESSION: 1. No evidence of intracranial hemorrhage or mass effect. 2. No acute intracranial findings.
--- NOTE | 2021-12-27 10:57 | XR_ITS ---
WS: [id number] Left knee, 3 views, 12/27/2021 Clinical Data: trauma Comparison: None. Findings: No fractures or dislocations are seen. There is medial joint compartment narrowing without spurring. The patella is intact. The soft tissues are unremarkable. XR/XR knee LT 3V* [id number] Impression: Minimal medial joint compartment narrowing of the left knee. Kellgren-Matt Classification: grade 1 (doubtful): doubtful joint space narr owing and possible osteophytic lipping
--- NOTE | 2021-12-27 10:57 | XR_ITS ---
WS: [id number] Left femur and thigh, AP and lateral views, 12/27/2021 Clinical Data: trauma Comparison: None. Findings: No fractures or dislocations are seen. The soft tissues are normal. The shaft of the femur is intact. XR/XR femur LT min 2V* [id number] Impression: Negative left femur and thigh.
--- NOTE | 2021-12-27 10:57 | CT_ITS ---
WS: [id number] CT CERVICAL TRAUMA TECHNIQUE: Noncontrast CT of the cervical spine with coronal and sagittal reformatted images. CLINICAL INFORMATION: trauma COMPARISON: None. DLP: 1442.[address] scans at [facility] use at least one of these dose optimization techniques: automated e xposure control; mA and/or kV adjustment per patient size (includes targeted exams where dose is matc hed to clinical indication); or iterative reconstruction. FINDINGS: Straightening of the normal cervical lordosis. Minimal spondylitic changes. Disc osteophyte ridging a t C5-C6. Normal craniocervical junction. Normal C1-C2 articulation. Dens is normal in appearance. Nor mal occipital condyles. No high-grade spinal canal narrowing. Normal C1 ring. No evidence of acute fr acture or dislocation. Normal prevertebral soft tissues. Mastoids air cells are well aerated. CT/CT cervical spin wo con* [id number] IMPRESSION: No evidence of acute fracture or dislocation.
--- NOTE | 2021-12-27 11:02 | PC.PHAR ---
Addendum entered by Shani Stone 12/27/21 11:03: SEE PHARMACY COMMENTS TO SEE LAST FILL DATES Original Note: PT STATES SHE TAKES CARE OF HER OWN MEDICATIONS SEE PHARMACY COMMENTS
[2021-12-27 11:58] LABS: Basophils % 0.2 %; Hematocrit 44.9 % (37.0-47.0); Hemoglobin 14.4 g/dL (11.5-15.3); Lymphocytes # 1.3 10^3/uL (0.8-4.8); Lymphocytes % 22.2 %; Mean Corpuscular HGB Conc 32.1 g/dL (30.0-36.0); Mean Corpuscular Hemoglobin 28.7 pg (28.0-34.0); Mean Corpuscular Volume 89.4 fl (81-99); Mean Platelet Volume 10.5 fL (7.4-10.4); Monocytes # 0.4 10^3/uL (0.2-0.9); Monocytes % 6.3 %; Neutrophils # 4.03 10^3/uL (1.8-7.7); Neutrophils % 70.9 %; Nucleated Red Blood Cells % 0 %; Platelet Count 214 10^3/cmm (130-400); Red Blood Count 5.02 10^6/uL (4.1-5.3); Red Cell Distribution Width 13.1 % (12.1-15.1); White Blood Count 5.7 10^3/uL (4.0-10.0)
[2021-12-27 12:15] LABS: Alanine Aminotransferase 14 U/L (0-33); Albumin Level 3.5 g/dL (3.5-5.2); Alkaline Phosphatase 106 U/L (35-105); Anion Gap 12.1 (5-19); Aspartate Amino Transferase 12 U/L (0-32); Blood Urea Nitrogen 12 mg/dL (6-20); Calcium 8.9 mg/dL (8.5-10.5); Carbon Dioxide 25 mmol/L (22-29); Chloride 101 mmol/L (98-107); Globulin 3.8 g/dL (1.3-4.6); Glomerular Filtration Rate 115.1 mL/min (90-130); Glucose 289 mg/dL (65-115); Osmolality Calculated 288 mOsm/kg (285-295); Potassium 4.1 mmol/L (3.5-5.1); Sodium 134 mmol/L (136-145); Total Bilirubin 0.4 mg/dL (0.15-1.2); Total Protein 7.3 g/dL (6.6-8.7)
[2021-12-27 12:31] LABS: Add Urine Microscopic? YES; Bilirubin Urine Neg (Negative); Blood Urine Neg (Negative); Glucose Urine UA 4+ (Normal); Ketones Urine 1+ (Negative); Leukocyte Esterase Urine Negative (Negative); Nitrate Urine Negative (Negative); Protein Urine 1+ (Negative); Urine Appearance Clear (CLEAR); Urine Color Yellow (Yellow); Urobilinogen Urine 4 mg/dL (Negative); pH Urine 5 (5-7)
[2021-12-27 12:32] LABS: Add Urine Culture? No; Bacteria Urine TRACE /hpf; RBC Urine 0-4 /hpf (0-2); Squamous Epithelial Cell Urine 0-4 /hpf (0-5); WBC Urine 0-4 /hpf (0-5)
[2021-12-27] MEDS: iohexol 350 mg/mL 500 mL Btl (per mL) IV (12:44)
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
[2021-12-27] MEDS: acetaminophen 500 mg Tablet 1000 MG PO (13:57)
[2021-12-27] MEDS: insulin regular-human 100 units/1 mL 10 UNIT IVP (13:58)
[2021-12-27 14:02] VITALS: BP 154/98; PULSE 60; RESP 16; O2SAT 97
== END 2021-12-27 14:22 | disposition home or self-care (01) ==
PROVIDERS: Emergency Provider Family Medicine; PCP Nurse Practitioner Primary Care
DX: S70.12XA Contusion of left thigh, initial encounter (principal); R07.81 Pleurodynia; Z79.4 Long term (current) use of insulin; Z87.891 Personal history of nicotine dependence; I10 Essential (primary) hypertension; E11.9 Type 2 diabetes mellitus without complications; V86.59XA Driver of other special all-terrain or other off-road motor vehicle injured in nontraffic accident, initial encounter
CPT/HCPCS: 70450; 71260; 72125; 73552; 73562; 74177; 80053; 81001; 85025; 96374; 99285; J1815; Q9967

== ENCOUNTER → 2022-02-11 14:00 | Outpatient (BNVA) | payer MEDICAID, SELFPAY | PROVIDERS: PCP Nurse Practitioner Primary Care; Visit Provider Obstetrics & Gynecology | DX: Z01.419 Encounter for gynecological examination (general) (routine) without abnormal findings (principal) | CPT/HCPCS: 87624 ==

== ENCOUNTER → 2022-03-13 14:42 | Outpatient (BNVA) | payer MEDICAID, SELFPAY | PROVIDERS: PCP Nurse Practitioner Primary Care; Visit Provider Obstetrics & Gynecology | DX: L90.0 Lichen sclerosus et atrophicus (principal) | CPT/HCPCS: 88305 ==

== ENCOUNTER → 2022-11-06 10:10 | Outpatient (BNVA) | payer MEDICAID, SELFPAY | PROVIDERS: PCP Family Medicine; Visit Provider Registered Nurse | DX: Z79.899 Other long term (current) drug therapy (principal) | CPT/HCPCS: 80053; 80061; 83036; 85025 ==

== ENCOUNTER → 2023-03-04 15:43 | Outpatient (BNVA) | payer MEDICAID, SELFPAY ==
[2023-02-19 15:49] VITALS: BP 127/83; BMI 46.3
== END ==
PROVIDERS: PCP Family Medicine; Visit Provider Obstetrics & Gynecology
DX: Z12.4 Encounter for screening for malignant neoplasm of cervix (principal)
CPT/HCPCS: 88175